=== PATIENT | male | born 1955 | race African-American/Black ===

== ENCOUNTER 2019-11-01 11:04 | Inpatient (IN) | payer MEDICARE, MEDICAID ==
[~2019-11-01] VITALS: Ht 180.3 cm; Wt 53.6 kg
[2019-11-01] VITALS (11 sets, daily range): BP systolic 102–120; BP diastolic 48–73
[2019-11-01 11:23] LABS: BASE EXCESS ABG 5 mmol/L (-3-3); HCO3 ABG 29 mmol/L (21-28); PCO2 ABG 40 mmHg (35-46); PO2 ABG 77 mmHg (65-108); SAT O2 ABG 95 % (92-99)
[2019-11-01 11:24] LABS: FIO2 ABG 100
[2019-11-01] MEDS ORDERED: IV NORMAL SALINE 1000ML BAG 1,000 ML IV ONE ×3 (11:30→14:45)
[2019-11-01 11:37] LABS: BASO # 0.1 x10^3/uL (0.0-0.2); BASO % 0 % (0-3); EOS % 0 % (0-3); HEMATOCRIT 40.3 % (39.0-53.0); HEMOGLOBIN 12.6 g/dL (13.0-17.5); LYMPH # 1.3 x10^3/uL (1.0-4.8); LYMPH % 6 % (24-48); MEAN CORPUSCULAR HEMOGLOBIN 29 pg (25-35); MEAN CORPUSCULAR HGB CONC 31 g/dL (31-37); MEAN CORPUSCULAR VOLUME 93 fL (79-100); MONO # 0.7 x10^3/uL (0.0-1.1); MONO % 3 % (0-9); NEUT # 19.3 x10^3/uL (1.8-7.7); NEUT % 91 % (31-73); PLATELET COUNT 377 x10^3/uL (140-400); RED BLOOD COUNT 4.35 x10^6/uL (4.30-5.70); RED CELL DISTRIBUTION WIDTH 17.9 % (11.5-14.5); WHITE BLOOD COUNT 21.3 x10^3/uL (4.0-11.0)
[2019-11-01 11:45] LABS: CALCIUM 9.4 mg/dL (8.5-10.1); CREATININE 1.2 mg/dL (0.7-1.3); GFR 73.3; POTASSIUM 3.5 mmol/L (3.5-5.1)
[2019-11-01 11:46] LABS: PROTHROMBIN TIME PATIENT 15.7 SEC (11.7-14.0)
[2019-11-01 11:51] LABS: ALBUMIN 2.2 g/dL (3.4-5.0); ALBUMIN/GLOBULIN RATIO 0.3 (1.0-1.7); TOTAL BILIRUBIN 0.4 mg/dL (0.2-1.0); TOTAL PROTEIN 10.7 g/dL (6.4-8.2)
[2019-11-01 11:52] LABS: D-DIMER 3.34 ug/mlFEU (0.00-0.50)
--- NOTE | 2019-11-01 12:22 | RAD ---
PORTABLE CHEST 1V Clinical indications: Shortness of air. COMPARISON: None available. Findings: Bilateral lung infiltrates are present much more consolidated and prominent within the lower lung zones bilaterally. No pleural effusion is seen on the left side. There is mild thickening of the right minor fissure consistent with a small amount of pleural effusion on this side. The apices are cut off. No pneumothorax is seen. The heart size and mediastinum and pulmonary vasculature and both maynor are unremarkable. IMPRESSION: Bilateral lung infiltrates or pulmonary edema more prominent within the lower lung zones. Minimal right-sided pleural effusion. Given normal heart size, the lung infiltrates may represent pneumonia or aspiration pneumonitis. Electronically signed by: West Mistry MD (11/01/2019 12:19 PM) [id number]
[2019-11-01 12:23] LABS: % BANDS 3 % (0-9); % LYMPHS 3 % (24-48); % MONOS 3 % (0-10); % SEGS 91 % (35-66); PLT ESTIMATE ADEQUATE (ADEQUATE)
[2019-11-01 12:24] LABS: POLYCHROMASIA SLIGHT
[2019-11-01 12:43] LABS: BILIRUBIN,URINE SMALL (NEG); CLARITY,URINE CLOUDY; COLOR,URINE YELLOW; NITRITE,URINE NEGATIVE (NEG); PH,URINE 5.5 (<5.0-8.0); PROTEIN,URINE 100 mg/dL (NEG-TRACE)
[2019-11-01 13:01] LABS: AMORPHOUS SEDIMENT,UR PRESENT /HPF; BACTERIA,URINE FEW /HPF (0-FEW)
--- NOTE | 2019-11-01 14:33 | PHYS DOC ---
Past Medical History Past Medical History: Unknown Additional Past Surgical Histo: UNK Smoking Status: Unknown if ever smoked Alcohol Use: None General Adult EDM: Chief Complaint: DYSPNEA/RESPIRATOY DISTRESS HPI: HPI: Patient is a 64 year old male, , with history of CVA, was brought here from [facility] with report of trouble breathing. Patient was recently treated for pneumonia. Patient has feeding tube in place, was in respiratory distress him arrival here, he was not able to provide any information. Patient has history of CVA, has hemiplegia and hemiparesis on right side. History of Parkinson disease, anxiety, Alzheimer's disease, rheumatoid arthritis, hypothyroidism. Review of Systems: Review of Systems: Not able to obtain due to patient condition Heart Score: Risk Factors: Risk Factors: DM, Current or recent (<one month) smoker, HTN, HLP, family history of CAD, obesity. Risk Scores: Score 0 - 3: 2.5% MACE over next 6 weeks - Discharge Home Score 4 - 6: 20.3% MACE over next 6 weeks - Admit for Clinical Observation Score 7 - 10: 72.7% MACE over next 6 weeks - Early Invasive Strategies Current Medications: Current Medications Medications (Trade) Dose Ordered Sig/Radha Start Time Stop Time Status Last Admin Dose Admin Levofloxacin/ Dextrose 150 ml @ 100 mls/hr 1X ONCE 11/01/19 13:00 11/01/19 14:29 DC 11/01/19 13:14 100 MLS/HR Sodium Chloride 1,000 ml @ 1,000 mls/hr 1X ONCE 11/01/19 12:00 11/01/19 12:59 DC 11/01/19 12:13 1,000 MLS/HR Allergies: Allergies: Allergies Coded Allergies Type Severity Reaction Last Updated Verified Penicillins Allergy Intermediate 11/01/19 Yes Physical Exam: PE: Constitutional: Well developed, cachectic, toxic appearance. [] HENT: Normocephalic, atraumatic, bilateral external ears normal, oropharynx is dried, no oral exudates, nose normal. [] Eyes: PERRLA, EOMI, conjunctiva normal, no discharge. [] Neck: Normal range of motion, no tenderness, supple, no stridor. [] Cardiovascular: SINUS TACHYCARDIA, regular rhythm, no murmur [] Lungs & Thorax: DIFFUSE CRACKLES AT LUNG BASES. Abdomen: Bowel sounds normal, soft, no tenderness, no masses, no pulsatile masses. [] Skin: DIAPHORESIS Back: ATRAUMATIC Extremities: RIGHT SIDE HEMIPARALYSIS (CHRONIC), PATIENT WAS ABLE TO MOVE LEFT TOE... Neurologic: ALERT, CONFUSED, RIGHT SIDE HEMIPARALYSIS. Psychologic: NOT ABLE TO EVALUATE DUE TO CONDITION. Current Patient Data: Labs: Laboratory Tests Test 11/01/19 11:15 11/01/19 12:35 White Blood Count 21.3 x10^3/uL (4.0-11.0) H Red Blood Count 4.35 x10^6/uL (4.30-5.70) Hemoglobin 12.6 g/dL (13.0-17.5) L Hematocrit 40.3 % (39.0-53.0) Mean Corpuscular Volume 93 fL (79-100) Mean Corpuscular Hemoglobin 29 pg (25-35) Mean Corpuscular Hemoglobin Concent 31 g/dL (31-37) Red Cell Distribution Width 17.9 % (11.5-14.5) H Platelet Count 377 x10^3/uL (140-400) Neutrophils (%) (Auto) 91 % (31-73) H Lymphocytes (%) (Auto) 6 % (24-48) L Monocytes (%) (Auto) 3 % (0-9) Eosinophils (%) (Auto) 0 % (0-3) Basophils (%) (Auto) 0 % (0-3) Neutrophils # (Auto) 19.3 x10^3/uL (1.8-7.7) H Lymphocytes # (Auto) 1.3 x10^3/uL (1.0-4.8) Monocytes # (Auto) 0.7 x10^3/uL (0.0-1.1) Eosinophils # (Auto) 0.0 x10^3/uL (0.0-0.7) Basophils # (Auto) 0.1 x10^3/uL (0.0-0.2) Segmented Neutrophils % 91 % (35-66) H Band Neutrophils % 3 % (0-9) Lymphocytes % 3 % (24-48) L Monocytes % 3 % (0-10) Platelet Estimate Adequate (ADEQUATE) Polychromasia Slight Prothrombin Time 15.7 SEC (11.7-14.0) H Prothrombin Time INR 1.3 (0.8-1.1) H Activated Partial Thromboplast Time 31 SEC (24-38) D-Dimer (Lolis) 3.34 ug/mlFEU (0.00-0.50) H O2 Saturation 95 % (92-99) Arterial Blood pH 7.48 (7.35-7.45) H Arterial Blood pCO2 at Patient Temp 40 mmHg (35-46) Arterial Blood pO2 at Patient Temp 77 mmHg (65-108) Arterial Blood HCO3 29 mmol/L (21-28) H Arterial Blood Base Excess 5 mmol/L (-3-3) H FiO2 100 Sodium Level 158 mmol/L (136-145) H Potassium Level 3.5 mmol/L (3.5-5.1) Chloride Level 116 mmol/L (98-107) H Carbon Dioxide Level 33 mmol/L (21-32) H Anion Gap 9 (6-14) Blood Urea Nitrogen 62 mg/dL (8-26) H Creatinine 1.2 mg/dL (0.7-1.3) Estimated GFR (Cockcroft-Gault) 73.3 BUN/Creatinine Ratio 52 (6-20) H Glucose Level 247 mg/dL (70-99) H Lactic Acid Level 2.9 mmol/L (0.4-2.0) H Calcium Level 9.4 mg/dL (8.5-10.1) Total Bilirubin 0.4 mg/dL (0.2-1.0) Aspartate Amino Transferase (AST) 83 U/L (15-37) H Alanine Aminotransferase (ALT) 123 U/L (16-63) H Alkaline Phosphatase 199 U/L (46-116) H Troponin I Quantitative 0.108 ng/mL (0.000-0.055) Total Protein 10.7 g/dL (6.4-8.2) H Albumin 2.2 g/dL (3.4-5.0) L Albumin/Globulin Ratio 0.3 (1.0-1.7) L Urine Collection Type U cath Urine Color Yellow Urine Clarity Cloudy Urine pH 5.5 (<5.0-8.0) Urine Specific [place] 1.020 (1.000-1.030) Urine Protein 100 mg/dL (NEG-TRACE) Urine Glucose (UA) 100 mg/dL (NEG) Urine Ketones (Stick) Negative mg/dL (NEG) Urine Blood Moderate (NEG) Urine Nitrite Negative (NEG) Urine Bilirubin Small (NEG) Urine Urobilinogen Dipstick 1.0 mg/dL (0.2 mg/dL) Urine Leukocyte Esterase Negative (NEG) Urine RBC 6-10 /HPF (0-2) Urine WBC 1-4 /HPF (0-4) Urine Amorphous Sediment Present /HPF Urine Bacteria Few /HPF (0-FEW) Laboratory Tests 11/01/19 11:15 Laboratory Tests 11/01/19 11:15 Vital Signs: Vital Signs Date Time Temp Pulse Resp B/P (MAP) Pulse Ox O2 Delivery O2 Flow Rate FiO2 11/01/19 11:25 NonRebreather Mask 15.0 11/01/19 11:10 99.3 159 43 80/62 (68 85 99.3 EKG: EKG: EKG was done at 1111, heart rate of 158 bpm, sinus tachycardia, no ST segment elevation. Radiology/Procedures: Radiology/Procedures: [][facility] [address] [place] [address] IMAGING REPORT Signed PATIENT: JACQUELYN WARE ACCOUNT: [id number] : 1955 LOCATION: ER AGE: 64 SEX: M EXAM STATUS: REG ER ORD. PHYSICIAN: THALIA GRACIA DO REASON: SOA PROCEDURE: PORTABLE CHEST 1V PORTABLE CHEST 1V Clinical indications: Shortness of air. COMPARISON: None available. Findings: Bilateral lung infiltrates are present much more consolidated and prominent within the lower lung zones bilaterally. No pleural effusion is seen on the left side. There is mild thickening of the right minor fissure consistent with a small amount of pleural effusion on this side. The apices are cut off. No pneumothorax is seen. The heart size and mediastinum and pulmonary vasculature and both maynor are unremarkable. IMPRESSION: Bilateral lung infiltrates or pulmonary edema more prominent within the lower lung zones. Minimal right-sided pleural effusion. Given normal heart size, the lung infiltrates may represent pneumonia or aspiration pneumonitis. Electronically signed by: Rafael Mistry MD (11/01/2019 12:19 PM) [id number] DICTATED and SIGNED BY: RAFAEL MISTRY MD DATE: 11/01/19 1219 Course & Med Decision Making: Course & Med Decision Making Pertinent Labs and Imaging studies reviewed. (See chart for details) Patient is a 64-year-old male who was severely dehydrated emaciated with history of CVA affecting right side of his body, nonverbal, was brought here by EMS fr [facility] due to trouble breathing. Chest x-ray showed bilateral infiltration consistent with pneumonia. Patient is suspected to have COVID19 infection as well. He is severely dehydrated, severe sepsis. Patient was given 3 L normal saline in the ER, his blood pressure and heart rate improved. Patient became more awake alert after IV fluids given. Patient is allergic to penicillin so he was given 750 mg of Levaquin IV. Patient will be admitted to ICU for further evaluation and treatment. Discussed with Dr. Ron, hospitalist on-call, who agreed to admit the patient to ICU. COVID-19 CRITERIA: The patient was evaluated during the global COVID-19 pandemic, and that diagnosis was suspected/considered upon their initial presentation. Their evaluation, treatment and testing was consistent with current guidelines for patients who present with complaints or symptoms that may be related to COVID-19. Critical care time was [60] minutes which includes time at bedside, spent in discussion of patient's care with specialist and/or family members, with interpretation of laboratory and/or radiological studies and is exclusive of procedures. Dragon Disclaimer: Dragon Disclaimer: This electronic medical record was generated, in whole or in part, using a voice recognition dictation system. Departure Departure Impression: Primary Impression: Severe sepsis Additional Impressions: Pneumonia Suspected COVID-19 virus infection Dehydration Disposition: ADMITTED INPATIENT Admitting Physician: NORMAN (Dr. Ron) Condition: IMPROVED Referrals: UNKNOWN PCP NAME (PCP) Justicifation of Admission Dx: Justifications for Admission: Justification of Admission Dx: Yes Sepsis: Hemodynamic Instability Date and Time of Reassessment Date: Nov 01, 2019 Time: 15:18 Fluid Challenge Is the fluid challenge complet: Yes IBW Target Volume Used: Yes BMI > 30: No Vital Signs Vital Signs: Vital Signs Date Time Temp Pulse Resp B/P (MAP) Pulse Ox O2 Delivery O2 Flow Rate FiO2 11/01/19 11:25 NonRebreather Mask 15.0 11/01/19 11:10 99.3 159 43 80/62 (68) 85 99.3 Temperature Source: Axillary Respirations Respiratory Effort: Non-Labored Respiratory Pattern: Tachypnea Cardiovascular Pulse Rhythm: Regular (tachycardia) Heart: No JVD Capillary Refil Capillary Refill: Lt Hand > 3 seconds Peripheral Pulse Pulse Location: Monitor Pulse Strength: Normal (2+) Pulse Assessment Method: Monitor Integumentary Skin: Warm Skin Moisture: Diaphoretic Skin Color: warm THALIA GRACIA DO Nov 01, 2019 14:33
[2019-11-01] MEDS ORDERED: ONDANSETRON PF 4 MG/2 ML VIAL. IV PRN (14:45)
--- NOTE | 2019-11-01 16:15 | PDOC ---
Infectious Disease Note Vital Sign Vital Signs Vital Signs Date Time Temp Pulse Resp B/P (MAP) Pulse Ox O2 Delivery O2 Flow Rate FiO2 11/01/19 11:25 NonRebreather Mask 15.0 11/01/19 11:10 99.3 159 43 80/62 (68) 85 99.3 Labs Lab Laboratory Tests Test 11/01/19 11:15 11/01/19 12:35 11/01/19 14:45 White Blood Count 21.3 x10^3/uL (4.0-11.0) Red Blood Count 4.35 x10^6/uL (4.30-5.70) Hemoglobin 12.6 g/dL (13.0-17.5) Hematocrit 40.3 % (39.0-53.0) Mean Corpuscular Volume 93 fL (79-100) Mean Corpuscular Hemoglobin 29 pg (25-35) Mean Corpuscular Hemoglobin Concent 31 g/dL (31-37) Red Cell Distribution Width 17.9 % (11.5-14.5) Platelet Count 377 x10^3/uL (140-400) Neutrophils (%) (Auto) 91 % (31-73) Lymphocytes (%) (Auto) 6 % (24-48) Monocytes (%) (Auto) 3 % (0-9) Eosinophils (%) (Auto) 0 % (0-3) Basophils (%) (Auto) 0 % (0-3) Neutrophils # (Auto) 19.3 x10^3/uL (1.8-7.7) Lymphocytes # (Auto) 1.3 x10^3/uL (1.0-4.8) Monocytes # (Auto) 0.7 x10^3/uL (0.0-1.1) Eosinophils # (Auto) 0.0 x10^3/uL (0.0-0.7) Basophils # (Auto) 0.1 x10^3/uL (0.0-0.2) Segmented Neutrophils % 91 % (35-66) Band Neutrophils % 3 % (0-9) Lymphocytes % 3 % (24-48) Monocytes % 3 % (0-10) Platelet Estimate Adequate (ADEQUATE) Polychromasia Slight Prothrombin Time 15.7 SEC (11.7-14.0) Prothromb Time International Ratio 1.3 (0.8-1.1) Activated Partial Thromboplast Time 31 SEC (24-38) D-Dimer (Lolis) 3.34 ug/mlFEU (0.00-0.50) O2 Saturation 95 % (92-99) Arterial Blood pH 7.48 (7.35-7.45) Arterial Blood pCO2 at Patient Temp 40 mmHg (35-46) Arterial Blood pO2 at Patient Temp 77 mmHg (65-108) Arterial Blood HCO3 29 mmol/L (21-28) Arterial Blood Base Excess 5 mmol/L (-3-3) FiO2 100 Sodium Level 158 mmol/L (136-145) Potassium Level 3.5 mmol/L (3.5-5.1) Chloride Level 116 mmol/L (98-107) Carbon Dioxide Level 33 mmol/L (21-32) Anion Gap 9 (6-14) Blood Urea Nitrogen 62 mg/dL (8-26) Creatinine 1.2 mg/dL (0.7-1.3) Estimated GFR (Cockcroft-Gault) 73.3 BUN/Creatinine Ratio 52 (6-20) Glucose Level 247 mg/dL (70-99) Lactic Acid Level 2.9 mmol/L (0.4-2.0) 1.9 mmol/L (0.4-2.0) Calcium Level 9.4 mg/dL (8.5-10.1) Total Bilirubin 0.4 mg/dL (0.2-1.0) Aspartate Amino Transf (AST/SGOT) 83 U/L (15-37) Alanine Aminotransferase (ALT/SGPT) 123 U/L (16-63) Alkaline Phosphatase 199 U/L (46-116) Troponin I Quantitative 0.108 ng/mL (0.000-0.055) Total Protein 10.7 g/dL (6.4-8.2) Albumin 2.2 g/dL (3.4-5.0) Albumin/Globulin Ratio 0.3 (1.0-1.7) Urine Collection Type U cath Urine Color Yellow Urine Clarity Cloudy Urine pH 5.5 (<5.0-8.0) Urine Specific [place] 1.020 (1.000-1.030) Urine Protein 100 mg/dL (NEG-TRACE) Urine Glucose (UA) 100 mg/dL (NEG) Urine Ketones (Stick) Negative mg/dL (NEG) Urine Blood Moderate (NEG) Urine Nitrite Negative (NEG) Urine Bilirubin Small (NEG) Urine Urobilinogen Dipstick 1.0 mg/dL (0.2 mg/dL) Urine Leukocyte Esterase Negative (NEG) Urine RBC 6-10 /HPF (0-2) Urine WBC 1-4 /HPF (0-4) Urine Amorphous Sediment Present /HPF Urine Bacteria Few /HPF (0-FEW) Objective Assessment Sepsis with hypotension, POA Suspected COVID-19 infection vs aspiration Acute respiratory failure, on 6L O2 Leukocytosis Penicillin allergy Coccyx pressure wound, stage II, POA Transaminitis Elevated troponin Hypernatremia Oropharygeal dysphagia maintained on tube feedings h/o CVA with hemiplegia Parkinson's disease Alzheimer's disease care home resident Plan Plan of Care One time dose of Levaquin in ER, 10/31 Start Dapto, Zyvox and meropenem Monitor for abx toxicities Add lipase, CRP and LDH today's labs am labs f/u cultures Maintain aspiration precautions Local wound care and offloading as directed Airborne isolation for possible COVID-19 - awaiting results Critically ill D/w nursing Thank you [id number] Seen and examined and d/w nursing Critically ill. Monitor LFTs - may need imaging but exam benign 35 min and reviewed [facility] Attending Co-Sign Attending Co-Sign The patient was seen and interviewed as well as examined at the bedside. The chart was reviewed. The case was discussed. Agree with the plan of care. ARON HAY APRN Nov 01, 2019 16:15 ROCIO LOMBARDI MD Nov 01, 2019 16:36
[2019-11-01] MEDS: IV NORMAL SALINE 1000ML BAG 1,000 ML IV SCH (16:29)
[2019-11-01] MEDS ORDERED: ESOM40CA PO (16:47)
[2019-11-01] MEDS ORDERED: CALC-157 PEG (16:47)
[2019-11-01] MEDS ORDERED: TRAZ-118 PEG (16:47)
[2019-11-01] MEDS ORDERED: SERT50TA PEG (16:47)
[2019-11-01] MEDS ORDERED: METF500T16 PEG (16:47)
[2019-11-01] MEDS ORDERED: ASPI81TA59 PEG (16:47)
[2019-11-01] MEDS ORDERED: ACET325T9 PEG (16:47)
[2019-11-01] MEDS ORDERED: ATOR40TA59 PEG (16:47)
[2019-11-01] MEDS ORDERED: GABA600T7 PEG (16:47)
[2019-11-01] MEDS ORDERED: DAPTOmycin (GENERIC) IVPB 350 MG in IV NORMAL SALINE 50ML 50 ML IV ONE (17:00)
[2019-11-01 17:13] LABS: C-REACTIVE PROTEIN 214.5 mg/L (0-3.3)
[2019-11-01] MEDS: MEROPENEM 500 MG in IV NORMAL SALINE 50ML 50 ML IV SCH (17:42)
--- NOTE | 2019-11-01 17:56 | HP ---
ADMIT DATE: 11/01/2019 CHIEF COMPLAINT: Shortness of breath. HISTORY OF PRESENT ILLNESS: The patient is a pleasant 64-year-old male who had a stroke. He has got aphasia and a dense right hemiparesis. I think he lives at a facility at [facility]. He now presents with shortness of breath. We were concerned he could have COVID-19. We are going to admit the patient to rule out COVID-19. PAST MEDICAL HISTORY: Stroke, expressive aphasia, right dense hemiparesis. ALLERGIES: PENICILLIN. FAMILY HISTORY: Diabetes. SOCIAL HISTORY: Does not drink, smoke or take drugs. He lives at a group home. MEDICATIONS: Reviewed, please refer to the MRAD. REVIEW OF SYSTEMS: Unable to obtain. PHYSICAL EXAMINATION: VITALS: Within normal limits and are stable. GENERAL: No apparent distress. Alert and oriented. HEENT: Normal cephalic atraumatic, external auditory canals are patent EYES: Extraocular muscles are intact, pupils are equally round and reactive to light and accommodation MUSCULOSKELETAL: Well developed, well nourished, good range of motion ENDOCRINE: No thyromegaly was palpated LYMPHATICS: No cervical chain or axillary nodes were noted HEMATOPOIETIC: No bruising NECK: Supple, no JVD, no thyromegaly was noted. LUNGS: He has crackles. HEART: RRR, S1, S2 present. Peripheral pulses intact, no obvious murmurs were noted. ABDOMEN: Soft, nontender. Positive bowel sounds no organomegaly, normal bowel sounds. EXTREMITIES: Without any cyanosis, clubbing, or edema. Pedal pulses intact, Homans sign is negative. NEUROLOGIC: He cannot talk. PSYCHIATRIC: Normal affect, normal mood. Stable. SKIN: No ulcerations or rashes, good skin turgor, no jaundice. VASCULAR: Good capillary refill, neurovascular bundle appears to be intact. RADIOLOGICAL DATA: Chest x-ray shows bilateral lung infiltrates. ASSESSMENT AND PLAN: Respiratory failure, rule out COVID-19. The patient will be admitted. We will start IV antibiotics, breathing treatments, oxygen. Consult Pulmonary, consult Infectious Disease. Home meds, DVT prophylaxis. Full code. ICU monitoring. KONSTANTIN MOSS DO DR: MIRIAN/maribell JOB#: [id number] / [id number]
--- NOTE | 2019-11-01 18:12 | CONS ---
DATE OF CONSULTATION: 11/01/2019 REQUESTING PHYSICIAN: Dr. Ron. REASON FOR CONSULT: Suspected COVID-19 infection. HISTORY OF PRESENT ILLNESS: The patient is a 64-year-old -[place] gentleman with a past medical history of Alzheimer's disease, Parkinson's disease, history of cerebrovascular accident with hemiplegia and oropharyngeal dysphagia, maintained on tube feedings. [facility] with acute respiratory failure requiring some supplemental oxygen. He was hypotensive on arrival and was given 3 liters of IV fluids. He had a WBC count of 21,000 and lactic acid 2.9. A chest x-ray showed bilateral lung infiltrates or pulmonary edema, more prominent within the lower lung zones and minimal right-sided pleural effusion. He was given a one-time dose of levofloxacin for pneumonia in the ER. He was tested for COVID-19. Results are still pending. He was admitted to the Intensive Care Unit. PAST MEDICAL HISTORY: CVA with hemiplegia, Parkinson's disease, Alzheimer's disease, rheumatoid arthritis, hypothyroidism, oropharyngeal dysphagia, type 2 diabetes mellitus, bipolar disorder, anxiety disorder, and spinal stenosis in cervical region PAST SURGICAL HISTORY: PEG tube placement. Other surgical history unobtainable. FAMILY HISTORY: Unable to obtain due to the patient's condition and lack of medical records from the [facility]. SOCIAL HISTORY: half-way resident. He is a . ALLERGIES: LISTED PENICILLIN, reaction unknown. MEDICATIONS: Reviewed on the JUN and includes one-time dose of levofloxacin in ER. REVIEW OF SYSTEMS: Unobtainable due to the patient's condition. PHYSICAL EXAMINATION: VITAL SIGNS: Temperature 99.3, blood pressure 80/62, heart rate 159, respiratory rate 43, pulse oximetry 85% on 15 liters nonrebreather, now improved on 6 liters. GENERAL: The patient is lying down, alert, nonverbal, in no apparent distress. Cachexic. HEENT: Pupils equally round, normal conjunctivae. He refuses to open his mouth for exam. NECK: Supple. LUNGS: Clear to auscultation. No accessory muscle use. HEART: S1 and S2. ABDOMEN: Nondistended, soft, nontender with bowel sounds present. PEG tube in place. EXTREMITIES: No gross edema or cyanosis. Muscle atrophy. SKIN: Warm to touch. No signs of rash. He has a small sacrococcygeal pressure wound, stage 2 without signs of infection. NEUROLOGIC: Alert. He does not respond to questions or follow commands. LABORATORY DATA: Today's WBC 21.3, hemoglobin 12.6, platelets 377,000 segs 91%, bands 3%. Sodium 158, potassium 3.5, creatinine 1.2, BUN 62, glucose 247. Lactic acid 1.9 from 2.9 on admission. Total bilirubin 0.4, AST 83, ALT 123. Troponin 0.108, albumin 2.2. Urinalysis unremarkable for infection. Blood cultures are pending. Chest x-ray per HPI. COVID-19 pending. IMPRESSION: 1. Sepsis with hypotension, present on admission. 2. Suspected COVID-19 infection versus aspiration. 3. Acute respiratory failure requiring supplemental oxygen. 4. Leukocytosis. 5. PENICILLIN ALLERGY, reaction unknown. 6. Coccyx pressure wound, stage 2, present on admission. 7. Transaminitis. 8. Elevated troponin. 9. Hypernatremia 10. Oropharyngeal dysphagia, maintained on tube feedings. 11. History of cerebrovascular accident with hemiplegia. 12. Parkinson's disease. 13. Alzheimer's disease. 14. half-way resident. PLAN: 1. Records from a [facility] were reviewed though scant. We will add a lipase, CRP and LDH to today's labs. Initiate daptomycin, Zyvox and meropenem. Maintain aspiration precautions. Local wound care and offloading as directed. Repeat labs in the morning. Airborne isolation for possible COVID-19, pending results. 2. The patient is critically ill. Thank you, Dr. Ron, for asking us to participate in this patient's care. Should you have further questions or concerns, please call. The patient is seen and examined and plan of care implemented by Dr. Rocio Michaud. ROCIO MICHAUD MD DR: ELVIS/maribell JOB#: [id number] / [id number]
[2019-11-02] VITALS (19 sets, daily range): BP systolic 99–116; BP diastolic 54–70
[2019-11-02] MEDS: MEROPENEM 500 MG in IV NORMAL SALINE 50ML 50 ML IV SCH ×4 (00:11→21:09)
[2019-11-02] MEDS: IV NORMAL SALINE 1000ML BAG 1,000 ML IV SCH (03:48)
[2019-11-02 04:08] LABS: BASO % 0 % (0-3); EOS % 0 % (0-3); HEMATOCRIT 30.4 % (39.0-53.0); HEMOGLOBIN 9.3 g/dL (13.0-17.5); LYMPH # 1.4 x10^3/uL (1.0-4.8); LYMPH % 11 % (24-48); MEAN CORPUSCULAR HEMOGLOBIN 29 pg (25-35); MEAN CORPUSCULAR HGB CONC 31 g/dL (31-37); MEAN CORPUSCULAR VOLUME 93 fL (79-100); MONO # 0.5 x10^3/uL (0.0-1.1); MONO % 4 % (0-9); NEUT # 11.4 x10^3/uL (1.8-7.7); NEUT % 86 % (31-73); PLATELET COUNT 236 x10^3/uL (140-400); RED BLOOD COUNT 3.27 x10^6/uL (4.30-5.70); RED CELL DISTRIBUTION WIDTH 17.1 % (11.5-14.5); WHITE BLOOD COUNT 13.3 x10^3/uL (4.0-11.0)
[2019-11-02 04:29] LABS: ALBUMIN 1.5 g/dL (3.4-5.0); ALBUMIN/GLOBULIN RATIO 0.3 (1.0-1.7); CALCIUM 7.7 mg/dL (8.5-10.1); CREATININE 0.9 mg/dL (0.7-1.3); GFR 102.2; POTASSIUM 3.2 mmol/L (3.5-5.1); TOTAL BILIRUBIN 0.4 mg/dL (0.2-1.0); TOTAL PROTEIN 7.5 g/dL (6.4-8.2)
[2019-11-02] MEDS: IV 1/2 NORMAL SALINE 1,000 ML IV SCH ×2 (05:56→21:11)
--- NOTE | 2019-11-02 08:50 | PDOC ---
Infectious Disease Note Subjective Subjective Nonverbal No fevers last 24 hours Now on room air, satting 93% ROS ROS unobtainable due to patient's condition Vital Sign Vital Signs Vital Signs Date Time Temp Pulse Resp B/P (MAP) Pulse Ox O2 Delivery O2 Flow Rate FiO2 11/02/19 06:00 98 28 104/66 (79) 94 Room Air 11/02/19 05:00 1.0 11/02/19 04:00 96.7 96.7 Physical Exam PHYSICAL EXAM GENERAL: Propped up in bed, alert, nonverbal, cachexic, in NAD HEENT: Pupils equally round, normal conjunctivae. He refuses to open his mouth for exam. NECK: Supple. LUNGS: Clear to auscultation. No accessory muscle use. HEART: S1 and S2. ABDOMEN: Nondistended, soft, with bowel sounds present. + PEG tube. No grimace or guarding to palpation : Clark in place (10/31) EXTREMITIES: No gross edema or cyanosis. Muscle atrophy. Heel protector on the right. SKIN: Warm to touch. No signs of rash. A small sacrococcygeal pressure wound, stage 2 without signs of infection, as of 10/31. NEUROLOGIC: Alert. He does not respond to questions or follow commands. PIV looks ok Labs Lab Laboratory Tests Test 11/01/19 11:15 11/01/19 12:35 11/01/19 14:45 11/02/19 03:40 White Blood Count 21.3 x10^3/uL (4.0-11.0) 13.3 x10^3/uL (4.0-11.0) Red Blood Count 4.35 x10^6/uL (4.30-5.70) 3.27 x10^6/uL (4.30-5.70) Hemoglobin 12.6 g/dL (13.0-17.5) 9.3 g/dL (13.0-17.5) Hematocrit 40.3 % (39.0-53.0) 30.4 % (39.0-53.0) Mean Corpuscular Volume 93 fL (79-100) 93 fL (79-100) Mean Corpuscular Hemoglobin 29 pg (25-35) 29 pg (25-35) Mean Corpuscular Hemoglobin Concent 31 g/dL (31-37) 31 g/dL (31-37) Red Cell Distribution Width 17.9 % (11.5-14.5) 17.1 % (11.5-14.5) Platelet Count 377 x10^3/uL (140-400) 236 x10^3/uL (140-400) Neutrophils (%) (Auto) 91 % (31-73) 86 % (31-73) Lymphocytes (%) (Auto) 6 % (24-48) 11 % (24-48) Monocytes (%) (Auto) 3 % (0-9) 4 % (0-9) Eosinophils (%) (Auto) 0 % (0-3) 0 % (0-3) Basophils (%) (Auto) 0 % (0-3) 0 % (0-3) Neutrophils # (Auto) 19.3 x10^3/uL (1.8-7.7) 11.4 x10^3/uL (1.8-7.7) Lymphocytes # (Auto) 1.3 x10^3/uL (1.0-4.8) 1.4 x10^3/uL (1.0-4.8) Monocytes # (Auto) 0.7 x10^3/uL (0.0-1.1) 0.5 x10^3/uL (0.0-1.1) Eosinophils # (Auto) 0.0 x10^3/uL (0.0-0.7) 0.0 x10^3/uL (0.0-0.7) Basophils # (Auto) 0.1 x10^3/uL (0.0-0.2) 0.0 x10^3/uL (0.0-0.2) Segmented Neutrophils % 91 % (35-66) Band Neutrophils % 3 % (0-9) Lymphocytes % 3 % (24-48) Monocytes % 3 % (0-10) Platelet Estimate Adequate (ADEQUATE) Polychromasia Slight Prothrombin Time 15.7 SEC (11.7-14.0) Prothromb Time International Ratio 1.3 (0.8-1.1) Activated Partial Thromboplast Time 31 SEC (24-38) D-Dimer (Lolis) 3.34 ug/mlFEU (0.00-0.50) O2 Saturation 95 % (92-99) Arterial Blood pH 7.48 (7.35-7.45) Arterial Blood pCO2 at Patient Temp 40 mmHg (35-46) Arterial Blood pO2 at Patient Temp 77 mmHg (65-108) Arterial Blood HCO3 29 mmol/L (21-28) Arterial Blood Base Excess 5 mmol/L (-3-3) FiO2 100 Sodium Level 158 mmol/L (136-145) 161 mmol/L (136-145) Potassium Level 3.5 mmol/L (3.5-5.1) 3.2 mmol/L (3.5-5.1) Chloride Level 116 mmol/L (98-107) 125 mmol/L (98-107) Carbon Dioxide Level 33 mmol/L (21-32) 27 mmol/L (21-32) Anion Gap 9 (6-14) 9 (6-14) Blood Urea Nitrogen 62 mg/dL (8-26) 47 mg/dL (8-26) Creatinine 1.2 mg/dL (0.7-1.3) 0.9 mg/dL (0.7-1.3) Estimated GFR (Cockcroft-Gault) 73.3 102.2 BUN/Creatinine Ratio 52 (6-20) 52 (6-20) Glucose Level 247 mg/dL (70-99) 107 mg/dL (70-99) Lactic Acid Level 2.9 mmol/L (0.4-2.0) 1.9 mmol/L (0.4-2.0) Calcium Level 9.4 mg/dL (8.5-10.1) 7.7 mg/dL (8.5-10.1) Total Bilirubin 0.4 mg/dL (0.2-1.0) 0.4 mg/dL (0.2-1.0) Aspartate Amino Transf (AST/SGOT) 83 U/L (15-37) 60 U/L (15-37) Alanine Aminotransferase (ALT/SGPT) 123 U/L (16-63) 80 U/L (16-63) Alkaline Phosphatase 199 U/L (46-116) 109 U/L (46-116) Lactate Dehydrogenase 251 U/L (85-227) Troponin I Quantitative 0.108 ng/mL (0.000-0.055) C-Reactive Protein, Quantitative 214.5 mg/L (0-3.3) Total Protein 10.7 g/dL (6.4-8.2) 7.5 g/dL (6.4-8.2) Albumin 2.2 g/dL (3.4-5.0) 1.5 g/dL (3.4-5.0) Albumin/Globulin Ratio 0.3 (1.0-1.7) 0.3 (1.0-1.7) Lipase 172 U/L (73-393) Urine Collection Type U cath Urine Color Yellow Urine Clarity Cloudy Urine pH 5.5 (<5.0-8.0) Urine Specific [place] 1.020 (1.000-1.030) Urine Protein 100 mg/dL (NEG-TRACE) Urine Glucose (UA) 100 mg/dL (NEG) Urine Ketones (Stick) Negative mg/dL (NEG) Urine Blood Moderate (NEG) Urine Nitrite Negative (NEG) Urine Bilirubin Small (NEG) Urine Urobilinogen Dipstick 1.0 mg/dL (0.2 mg/dL) Urine Leukocyte Esterase Negative (NEG) Urine RBC 6-10 /HPF (0-2) Urine WBC 1-4 /HPF (0-4) Urine Amorphous Sediment Present /HPF Urine Bacteria Few /HPF (0-FEW) Objective Assessment Sepsis with hypotension, POA. improving Suspected COVID-19 infection vs aspiration Acute respiratory failure, improving, now on room air. Leukocytosis - better Penicillin allergy, reaction unknown Coccyx pressure wound, stage II, POA Transaminitis. LDH 215, lipase 172 Elevated troponin Hypernatremia Oropharygeal dysphagia maintained on tube feedings h/o CVA with hemiplegia Parkinson's disease Alzheimer's disease correction resident Plan Plan of Care One time dose of Levaquin in ER, 7 One time dose dapto, 72 Continue Zyvox/meropenem, 7/2 Monitor for abx toxicities CRP 214.5 f/u cultures Maintain aspiration precautions Local wound care and offloading as directed Airborne isolation for possible COVID-19 - awaiting results Critically ill D/w nursing COVID - neg - Clinically much better. alot of sputum per nursing - D/w nursing Attending Co-Sign Attending Co-Sign The patient was seen and interviewed as well as examined at the bedside. The chart was reviewed. The case was discussed. Agree with the plan of care. ARON HAY APRN Nov 02, 2019 08:50 ROCIO LOMBARDI MD Nov 02, 2019 14:40
--- NOTE | 2019-11-02 11:43 | PDOC ---
PULMONARY PROGRESS NOTES Vitals Vital Signs Date Time Temp Pulse Resp B/P (MAP) Pulse Ox O2 Delivery O2 Flow Rate FiO2 11/02/19 08:00 Room Air 11/02/19 08:00 97.5 89 26 116/70 (85) 94 97.5 11/02/19 05:00 1.0 Skin: Warm Labs Laboratory Tests Test 11/01/19 11:15 11/01/19 12:35 11/01/19 14:45 11/01/19 23:00 White Blood Count 21.3 x10^3/uL (4.0-11.0) Red Blood Count 4.35 x10^6/uL (4.30-5.70) Hemoglobin 12.6 g/dL (13.0-17.5) Hematocrit 40.3 % (39.0-53.0) Mean Corpuscular Volume 93 fL (79-100) Mean Corpuscular Hemoglobin 29 pg (25-35) Mean Corpuscular Hemoglobin Concent 31 g/dL (31-37) Red Cell Distribution Width 17.9 % (11.5-14.5) Platelet Count 377 x10^3/uL (140-400) Neutrophils (%) (Auto) 91 % (31-73) Lymphocytes (%) (Auto) 6 % (24-48) Monocytes (%) (Auto) 3 % (0-9) Eosinophils (%) (Auto) 0 % (0-3) Basophils (%) (Auto) 0 % (0-3) Neutrophils # (Auto) 19.3 x10^3/uL (1.8-7.7) Lymphocytes # (Auto) 1.3 x10^3/uL (1.0-4.8) Monocytes # (Auto) 0.7 x10^3/uL (0.0-1.1) Eosinophils # (Auto) 0.0 x10^3/uL (0.0-0.7) Basophils # (Auto) 0.1 x10^3/uL (0.0-0.2) Segmented Neutrophils % 91 % (35-66) Band Neutrophils % 3 % (0-9) Lymphocytes % 3 % (24-48) Monocytes % 3 % (0-10) Platelet Estimate Adequate (ADEQUATE) Polychromasia Slight Prothrombin Time 15.7 SEC (11.7-14.0) Prothromb Time International Ratio 1.3 (0.8-1.1) Activated Partial Thromboplast Time 31 SEC (24-38) D-Dimer (Lolis) 3.34 ug/mlFEU (0.00-0.50) O2 Saturation 95 % (92-99) Arterial Blood pH 7.48 (7.35-7.45) Arterial Blood pCO2 at Patient Temp 40 mmHg (35-46) Arterial Blood pO2 at Patient Temp 77 mmHg (65-108) Arterial Blood HCO3 29 mmol/L (21-28) Arterial Blood Base Excess 5 mmol/L (-3-3) FiO2 100 Sodium Level 158 mmol/L (136-145) Potassium Level 3.5 mmol/L (3.5-5.1) Chloride Level 116 mmol/L (98-107) Carbon Dioxide Level 33 mmol/L (21-32) Anion Gap 9 (6-14) Blood Urea Nitrogen 62 mg/dL (8-26) Creatinine 1.2 mg/dL (0.7-1.3) Estimated GFR (Cockcroft-Gault) 73.3 BUN/Creatinine Ratio 52 (6-20) Glucose Level 247 mg/dL (70-99) Lactic Acid Level 2.9 mmol/L (0.4-2.0) 1.9 mmol/L (0.4-2.0) Calcium Level 9.4 mg/dL (8.5-10.1) Total Bilirubin 0.4 mg/dL (0.2-1.0) Aspartate Amino Transf (AST/SGOT) 83 U/L (15-37) Alanine Aminotransferase (ALT/SGPT) 123 U/L (16-63) Alkaline Phosphatase 199 U/L (46-116) Lactate Dehydrogenase 251 U/L (85-227) Troponin I Quantitative 0.108 ng/mL (0.000-0.055) C-Reactive Protein, Quantitative 214.5 mg/L (0-3.3) Total Protein 10.7 g/dL (6.4-8.2) Albumin 2.2 g/dL (3.4-5.0) Albumin/Globulin Ratio 0.3 (1.0-1.7) Lipase 172 U/L (73-393) Urine Collection Type U cath Urine Color Yellow Urine Clarity Cloudy Urine pH 5.5 (<5.0-8.0) Urine Specific [place] 1.020 (1.000-1.030) Urine Protein 100 mg/dL (NEG-TRACE) Urine Glucose (UA) 100 mg/dL (NEG) Urine Ketones (Stick) Negative mg/dL (NEG) Urine Blood Moderate (NEG) Urine Nitrite Negative (NEG) Urine Bilirubin Small (NEG) Urine Urobilinogen Dipstick 1.0 mg/dL (0.2 mg/dL) Urine Leukocyte Esterase Negative (NEG) Urine RBC 6-10 /HPF (0-2) Urine WBC 1-4 /HPF (0-4) Urine Amorphous Sediment Present /HPF Urine Bacteria Few /HPF (0-FEW) Coronavirus (COVID-19)(PCR) Not detected (NOT DETECT.) Test 11/02/19 03:40 White Blood Count 13.3 x10^3/uL (4.0-11.0) Red Blood Count 3.27 x10^6/uL (4.30-5.70) Hemoglobin 9.3 g/dL (13.0-17.5) Hematocrit 30.4 % (39.0-53.0) Mean Corpuscular Volume 93 fL (79-100) Mean Corpuscular Hemoglobin 29 pg (25-35) Mean Corpuscular Hemoglobin Concent 31 g/dL (31-37) Red Cell Distribution Width 17.1 % (11.5-14.5) Platelet Count 236 x10^3/uL (140-400) Neutrophils (%) (Auto) 86 % (31-73) Lymphocytes (%) (Auto) 11 % (24-48) Monocytes (%) (Auto) 4 % (0-9) Eosinophils (%) (Auto) 0 % (0-3) Basophils (%) (Auto) 0 % (0-3) Neutrophils # (Auto) 11.4 x10^3/uL (1.8-7.7) Lymphocytes # (Auto) 1.4 x10^3/uL (1.0-4.8) Monocytes # (Auto) 0.5 x10^3/uL (0.0-1.1) Eosinophils # (Auto) 0.0 x10^3/uL (0.0-0.7) Basophils # (Auto) 0.0 x10^3/uL (0.0-0.2) Sodium Level 161 mmol/L (136-145) Potassium Level 3.2 mmol/L (3.5-5.1) Chloride Level 125 mmol/L (98-107) Carbon Dioxide Level 27 mmol/L (21-32) Anion Gap 9 (6-14) Blood Urea Nitrogen 47 mg/dL (8-26) Creatinine 0.9 mg/dL (0.7-1.3) Estimated GFR (Cockcroft-Gault) 102.2 BUN/Creatinine Ratio 52 (6-20) Glucose Level 107 mg/dL (70-99) Calcium Level 7.7 mg/dL (8.5-10.1) Total Bilirubin 0.4 mg/dL (0.2-1.0) Aspartate Amino Transf (AST/SGOT) 60 U/L (15-37) Alanine Aminotransferase (ALT/SGPT) 80 U/L (16-63) Alkaline Phosphatase 109 U/L (46-116) Total Protein 7.5 g/dL (6.4-8.2) Albumin 1.5 g/dL (3.4-5.0) Albumin/Globulin Ratio 0.3 (1.0-1.7) Laboratory Tests Test 11/01/19 12:35 11/01/19 14:45 11/01/19 23:00 11/02/19 03:40 Urine Collection Type U cath Urine Color Yellow Urine Clarity Cloudy Urine pH 5.5 (<5.0-8.0) Urine Specific [place] 1.020 (1.000-1.030) Urine Protein 100 mg/dL (NEG-TRACE) Urine Glucose (UA) 100 mg/dL (NEG) Urine Ketones (Stick) Negative mg/dL (NEG) Urine Blood Moderate (NEG) Urine Nitrite Negative (NEG) Urine Bilirubin Small (NEG) Urine Urobilinogen Dipstick 1.0 mg/dL (0.2 mg/dL) Urine Leukocyte Esterase Negative (NEG) Urine RBC 6-10 /HPF (0-2) Urine WBC 1-4 /HPF (0-4) Urine Amorphous Sediment Present /HPF Urine Bacteria Few /HPF (0-FEW) Lactic Acid Level 1.9 mmol/L (0.4-2.0) Coronavirus (COVID-19)(PCR) Not detected (NOT DETECT.) White Blood Count 13.3 x10^3/uL (4.0-11.0) Red Blood Count 3.27 x10^6/uL (4.30-5.70) Hemoglobin 9.3 g/dL (13.0-17.5) Hematocrit 30.4 % (39.0-53.0) Mean Corpuscular Volume 93 fL (79-100) Mean Corpuscular Hemoglobin 29 pg (25-35) Mean Corpuscular Hemoglobin Concent 31 g/dL (31-37) Red Cell Distribution Width 17.1 % (11.5-14.5) Platelet Count 236 x10^3/uL (140-400) Neutrophils (%) (Auto) 86 % (31-73) Lymphocytes (%) (Auto) 11 % (24-48) Monocytes (%) (Auto) 4 % (0-9) Eosinophils (%) (Auto) 0 % (0-3) Basophils (%) (Auto) 0 % (0-3) Neutrophils # (Auto) 11.4 x10^3/uL (1.8-7.7) Lymphocytes # (Auto) 1.4 x10^3/uL (1.0-4.8) Monocytes # (Auto) 0.5 x10^3/uL (0.0-1.1) Eosinophils # (Auto) 0.0 x10^3/uL (0.0-0.7) Basophils # (Auto) 0.0 x10^3/uL (0.0-0.2) Sodium Level 161 mmol/L (136-145) Potassium Level 3.2 mmol/L (3.5-5.1) Chloride Level 125 mmol/L (98-107) Carbon Dioxide Level 27 mmol/L (21-32) Anion Gap 9 (6-14) Blood Urea Nitrogen 47 mg/dL (8-26) Creatinine 0.9 mg/dL (0.7-1.3) Estimated GFR (Cockcroft-Gault) 102.2 BUN/Creatinine Ratio 52 (6-20) Glucose Level 107 mg/dL (70-99) Calcium Level 7.7 mg/dL (8.5-10.1) Total Bilirubin 0.4 mg/dL (0.2-1.0) Aspartate Amino Transf (AST/SGOT) 60 U/L (15-37) Alanine Aminotransferase (ALT/SGPT) 80 U/L (16-63) Alkaline Phosphatase 109 U/L (46-116) Total Protein 7.5 g/dL (6.4-8.2) Albumin 1.5 g/dL (3.4-5.0) Albumin/Globulin Ratio 0.3 (1.0-1.7) Medications Active Scripts Medications Dose Route/Sig Max Daily Dose Days Date Category Tylenol (Acetaminophen) 325 Mg Tablet 2 Tab PEG PRN Q8HRS PRN 11/01/19 Reported Trazodone Hcl 50 Mg Tablet 1 Tab PEG QHS 11/01/19 Reported Zoloft (Sertraline Hcl) 50 Mg Tablet 1 Tab PEG DAILY 11/01/19 Reported Calcium 500 + Vit D 200 Tablet (Calcium Carbonate/Vitamin D3) 1 Each Tablet 1 Tab PEG BID 30 11/01/19 Reported Nexium Capsule (Esomeprazole Magnesium) 40 Mg Capsule.dr 1 Cap PO DAILY 11/01/19 Reported Metformin Hcl 500 Mg Tablet 500 Mg PEG DAILY 11/01/19 Reported Gabapentin 600 Mg Tablet 100 Mg PEG HS 11/01/19 Reported Atorvastatin Calcium 40 Mg Tablet 40 Mg PEG HS 11/01/19 Reported Children's Aspirin (Aspirin) 81 Mg Tab.chew 81 Mg PEG DAILY 11/01/19 Reported Impression . Full consult dictated Concur with current medical management respiratory failure multifactorial SARS-CoV-2 negative hypotension related to sepsis RAGHU WADSWORTH MD Nov 02, 2019 11:43
--- NOTE | 2019-11-02 12:08 | CONS ---
DATE OF CONSULTATION: 11/02/2019 ATTENDING PHYSICIAN: Guilherme Ron DO REASON FOR CONSULTATION: The patient seen in pulmonary consultation at the request of Dr. Ron for abnormal x-ray, suspect COVID-19 infection. HISTORY OF PRESENT ILLNESS: The patient is a 64-year-old -[place] male with a history of Alzheimer's disease, previous CVA, unable to obtain history from the patient himself. I have read the Infectious Disease consultation. The patient presented to the Emergency Room from retirement with acute respiratory distress requiring oxygen supplementation. He was hypotensive upon arrival, he was hypoxemic. X-ray revealed bilateral pulmonary infiltrates. The patient was started on IV antibiotics in the Emergency Department. He was seen by the Infectious Disease Service and is currently on broad-spectrum antibiotics. [id number] testing was performed. It came back this morning as negative. During my evaluation, the patient was awake, alert, but not following any commands, not responding to any of my questions. He did not appear to be in any respiratory distress. PAST MEDICAL HISTORY: Cerebrovascular accident with hemiplegia, parkinsonism, Alzheimer's dementia, rheumatoid arthritis, hypothyroidism, dysphagia, type 2 diabetes, bipolar disorder, anxiety disorder, previous history of spinal stenosis in the cervical region. PAST SURGICAL HISTORY: Status post PEG tube placement. FAMILY HISTORY: Unknown. SOCIAL HISTORY: He is a retirement resident. Unknown if he smokes or used to smoke. MEDICATIONS: List was reviewed. REVIEW OF SYSTEMS: Unobtainable secondary to the patient's condition. PHYSICAL EXAMINATION: VITAL SIGNS: Since admission, he has had a T-max of 99.3. He is currently on nasal cannula oxygen. At one point, he required 15 liters of oxygen supplementation. HEENT: Eyes, the sclerae were nonicteric. NECK: Jugular venous distention was not elevated. No lymphadenopathy. CHEST: Full expansion. LUNGS: Crackles throughout both lung dela cruz. No wheezes. CARDIOVASCULAR: Regular rate and rhythm with S1, S2, no S3. ABDOMEN: Soft. PEG in place. EXTREMITIES: Some muscle wasting. No significant edema. NEUROLOGIC: The patient was awake. A detailed neuro exam was not performed. LABORATORY DATA: White count initially was 21,000, hemoglobin and hematocrit were noted. Arterial blood gas; pH of 7.48, PaCO2 of 40, PaO2 of 77. D-dimer was 3.34. Electrolytes were deranged. Sodium was elevated. Potassium was low. Chloride was elevated. BUN was elevated. Albumin was markedly low at 1.5. LDH was elevated. C-reactive protein was elevated. Troponin level was elevated. Serology for [id number]-6 is negative. RADIOLOGICAL DATA: Chest x-ray as indicated above, bilateral pulmonary infiltrates. IMPRESSION: 1. Acute hypoxemic respiratory failure, multifactorial in nature. 2. Septic shock. 3. [id number] negative. 4. Leukocytosis. 5. PENICILLIN ALLERGY. 6. Stage 2 pressure wound on coccyx, present upon admission. 7. Elevated troponin. 8. Deranged electrolytes, hypernatremia and hypokalemia. 9. Neurogenic dysphagia, status post PEG tube placement. 10. History of cerebrovascular accident with hemiplegia. 11. Parkinsonism. 12. Alzheimer's. PLAN: 1. Continue empiric antibiotics. 2. IV fluids. 3. Pressors for mean arterial pressure above 60. 4. Discontinue isolation. 5. Empiric antibiotics per Infectious Disease Service. Total cumulative critical care time of 45 minutes reviewing data, labs, chest x-ray, and formulating a plan. RAGHU WADSWORTH MD DR: GAYATHRI/maribell JOB#: [id number] / [id number]
[2019-11-02] MEDS ORDERED: ACETAMINOPHEN 325 MG TABLET. PO PRN (16:15)
--- NOTE | 2019-11-02 16:30 | PDOC ---
PROGRESS NOTES Chief Complaint Chief Complaint acute hypoxic Respiratory failure, rule out COVID-19. s/p stroke with post CVA syndrome, aphasia sepsis, Stage 2 pressure wound on coccyx, present upon admission. hypernatremia from dehydration, acute vasomotor nephropathy Alzheimer's. History of Present Illness History of Present Illness f?u the r/o COVID pt seen in ICU transfer out as able consider Rehab pulm and ID following Vitals Vitals Vital Signs Date Time Temp Pulse Resp B/P (MAP) Pulse Ox O2 Delivery O2 Flow Rate FiO2 11/02/19 15:00 96 32 111/66 (81) 92 Room Air 11/02/19 12:00 97.2 97.2 11/02/19 05:00 1.0 Physical Exam Physical Exam GENERAL: Propped up in bed, alert, nonverbal, cachexic, in NAD HEENT: Pupils equally round, normal conjunctivae. He refuses to open his mouth for exam. NECK: Supple. LUNGS: Clear to auscultation. No accessory muscle use. HEART: S1 and S2. ABDOMEN: Nondistended, soft, with bowel sounds present. + PEG tube. No grimace or guarding to palpation : Clark in place (10/31) EXTREMITIES: No gross edema or cyanosis. Muscle atrophy. Heel protector on the right. SKIN: Warm to touch. No signs of rash. A small sacrococcygeal pressure wound, stage 2 without signs of infection, as of 10/31. NEUROLOGIC: Alert. He does not respond to questions or follow commands. PIV looks ok General: Alert, Cooperative Extremities: No clubbing Skin: No rashes Labs LABS Laboratory Tests Test 11/01/19 23:00 11/02/19 03:40 Coronavirus (COVID-19)(PCR) Not detected (NOT DETECT.) White Blood Count 13.3 x10^3/uL (4.0-11.0) Red Blood Count 3.27 x10^6/uL (4.30-5.70) Hemoglobin 9.3 g/dL (13.0-17.5) Hematocrit 30.4 % (39.0-53.0) Mean Corpuscular Volume 93 fL (79-100) Mean Corpuscular Hemoglobin 29 pg (25-35) Mean Corpuscular Hemoglobin Concent 31 g/dL (31-37) Red Cell Distribution Width 17.1 % (11.5-14.5) Platelet Count 236 x10^3/uL (140-400) Neutrophils (%) (Auto) 86 % (31-73) Lymphocytes (%) (Auto) 11 % (24-48) Monocytes (%) (Auto) 4 % (0-9) Eosinophils (%) (Auto) 0 % (0-3) Basophils (%) (Auto) 0 % (0-3) Neutrophils # (Auto) 11.4 x10^3/uL (1.8-7.7) Lymphocytes # (Auto) 1.4 x10^3/uL (1.0-4.8) Monocytes # (Auto) 0.5 x10^3/uL (0.0-1.1) Eosinophils # (Auto) 0.0 x10^3/uL (0.0-0.7) Basophils # (Auto) 0.0 x10^3/uL (0.0-0.2) Sodium Level 161 mmol/L (136-145) Potassium Level 3.2 mmol/L (3.5-5.1) Chloride Level 125 mmol/L (98-107) Carbon Dioxide Level 27 mmol/L (21-32) Anion Gap 9 (6-14) Blood Urea Nitrogen 47 mg/dL (8-26) Creatinine 0.9 mg/dL (0.7-1.3) Estimated GFR (Cockcroft-Gault) 102.2 BUN/Creatinine Ratio 52 (6-20) Glucose Level 107 mg/dL (70-99) Calcium Level 7.7 mg/dL (8.5-10.1) Total Bilirubin 0.4 mg/dL (0.2-1.0) Aspartate Amino Transf (AST/SGOT) 60 U/L (15-37) Alanine Aminotransferase (ALT/SGPT) 80 U/L (16-63) Alkaline Phosphatase 109 U/L (46-116) Total Protein 7.5 g/dL (6.4-8.2) Albumin 1.5 g/dL (3.4-5.0) Albumin/Globulin Ratio 0.3 (1.0-1.7) Assessment and Plan Assessmemt and Plan Problems Medical Problems: (1) Dehydration Status: Acute (2) Pneumonia Status: Acute (3) Severe sepsis Status: Acute (4) Suspected COVID-19 virus infection Status: Acute Comment Review of Relevant I have reviewed the following items cele (where applicable) has been applied. Labs Laboratory Tests Test 11/01/19 11:15 11/01/19 12:35 11/01/19 14:45 11/01/19 23:00 White Blood Count 21.3 x10^3/uL (4.0-11.0) Red Blood Count 4.35 x10^6/uL (4.30-5.70) Hemoglobin 12.6 g/dL (13.0-17.5) Hematocrit 40.3 % (39.0-53.0) Mean Corpuscular Volume 93 fL (79-100) Mean Corpuscular Hemoglobin 29 pg (25-35) Mean Corpuscular Hemoglobin Concent 31 g/dL (31-37) Red Cell Distribution Width 17.9 % (11.5-14.5) Platelet Count 377 x10^3/uL (140-400) Neutrophils (%) (Auto) 91 % (31-73) Lymphocytes (%) (Auto) 6 % (24-48) Monocytes (%) (Auto) 3 % (0-9) Eosinophils (%) (Auto) 0 % (0-3) Basophils (%) (Auto) 0 % (0-3) Neutrophils # (Auto) 19.3 x10^3/uL (1.8-7.7) Lymphocytes # (Auto) 1.3 x10^3/uL (1.0-4.8) Monocytes # (Auto) 0.7 x10^3/uL (0.0-1.1) Eosinophils # (Auto) 0.0 x10^3/uL (0.0-0.7) Basophils # (Auto) 0.1 x10^3/uL (0.0-0.2) Segmented Neutrophils % 91 % (35-66) Band Neutrophils % 3 % (0-9) Lymphocytes % 3 % (24-48) Monocytes % 3 % (0-10) Platelet Estimate Adequate (ADEQUATE) Polychromasia Slight Prothrombin Time 15.7 SEC (11.7-14.0) Prothromb Time International Ratio 1.3 (0.8-1.1) Activated Partial Thromboplast Time 31 SEC (24-38) D-Dimer (Lolis) 3.34 ug/mlFEU (0.00-0.50) O2 Saturation 95 % (92-99) Arterial Blood pH 7.48 (7.35-7.45) Arterial Blood pCO2 at Patient Temp 40 mmHg (35-46) Arterial Blood pO2 at Patient Temp 77 mmHg (65-108) Arterial Blood HCO3 29 mmol/L (21-28) Arterial Blood Base Excess 5 mmol/L (-3-3) FiO2 100 Sodium Level 158 mmol/L (136-145) Potassium Level 3.5 mmol/L (3.5-5.1) Chloride Level 116 mmol/L (98-107) Carbon Dioxide Level 33 mmol/L (21-32) Anion Gap 9 (6-14) Blood Urea Nitrogen 62 mg/dL (8-26) Creatinine 1.2 mg/dL (0.7-1.3) Estimated GFR (Cockcroft-Gault) 73.3 BUN/Creatinine Ratio 52 (6-20) Glucose Level 247 mg/dL (70-99) Lactic Acid Level 2.9 mmol/L (0.4-2.0) 1.9 mmol/L (0.4-2.0) Calcium Level 9.4 mg/dL (8.5-10.1) Total Bilirubin 0.4 mg/dL (0.2-1.0) Aspartate Amino Transf (AST/SGOT) 83 U/L (15-37) Alanine Aminotransferase (ALT/SGPT) 123 U/L (16-63) Alkaline Phosphatase 199 U/L (46-116) Lactate Dehydrogenase 251 U/L (85-227) Troponin I Quantitative 0.108 ng/mL (0.000-0.055) C-Reactive Protein, Quantitative 214.5 mg/L (0-3.3) Total Protein 10.7 g/dL (6.4-8.2) Albumin 2.2 g/dL (3.4-5.0) Albumin/Globulin Ratio 0.3 (1.0-1.7) Lipase 172 U/L (73-393) Urine Collection Type U cath Urine Color Yellow Urine Clarity Cloudy Urine pH 5.5 (<5.0-8.0) Urine Specific [place] 1.020 (1.000-1.030) Urine Protein 100 mg/dL (NEG-TRACE) Urine Glucose (UA) 100 mg/dL (NEG) Urine Ketones (Stick) Negative mg/dL (NEG) Urine Blood Moderate (NEG) Urine Nitrite Negative (NEG) Urine Bilirubin Small (NEG) Urine Urobilinogen Dipstick 1.0 mg/dL (0.2 mg/dL) Urine Leukocyte Esterase Negative (NEG) Urine RBC 6-10 /HPF (0-2) Urine WBC 1-4 /HPF (0-4) Urine Amorphous Sediment Present /HPF Urine Bacteria Few /HPF (0-FEW) Coronavirus (COVID-19)(PCR) Not detected (NOT DETECT.) Test 11/02/19 03:40 White Blood Count 13.3 x10^3/uL (4.0-11.0) Red Blood Count 3.27 x10^6/uL (4.30-5.70) Hemoglobin 9.3 g/dL (13.0-17.5) Hematocrit 30.4 % (39.0-53.0) Mean Corpuscular Volume 93 fL (79-100) Mean Corpuscular Hemoglobin 29 pg (25-35) Mean Corpuscular Hemoglobin Concent 31 g/dL (31-37) Red Cell Distribution Width 17.1 % (11.5-14.5) Platelet Count 236 x10^3/uL (140-400) Neutrophils (%) (Auto) 86 % (31-73) Lymphocytes (%) (Auto) 11 % (24-48) Monocytes (%) (Auto) 4 % (0-9) Eosinophils (%) (Auto) 0 % (0-3) Basophils (%) (Auto) 0 % (0-3) Neutrophils # (Auto) 11.4 x10^3/uL (1.8-7.7) Lymphocytes # (Auto) 1.4 x10^3/uL (1.0-4.8) Monocytes # (Auto) 0.5 x10^3/uL (0.0-1.1) Eosinophils # (Auto) 0.0 x10^3/uL (0.0-0.7) Basophils # (Auto) 0.0 x10^3/uL (0.0-0.2) Sodium Level 161 mmol/L (136-145) Potassium Level 3.2 mmol/L (3.5-5.1) Chloride Level 125 mmol/L (98-107) Carbon Dioxide Level 27 mmol/L (21-32) Anion Gap 9 (6-14) Blood Urea Nitrogen 47 mg/dL (8-26) Creatinine 0.9 mg/dL (0.7-1.3) Estimated GFR (Cockcroft-Gault) 102.2 BUN/Creatinine Ratio 52 (6-20) Glucose Level 107 mg/dL (70-99) Calcium Level 7.7 mg/dL (8.5-10.1) Total Bilirubin 0.4 mg/dL (0.2-1.0) Aspartate Amino Transf (AST/SGOT) 60 U/L (15-37) Alanine Aminotransferase (ALT/SGPT) 80 U/L (16-63) Alkaline Phosphatase 109 U/L (46-116) Total Protein 7.5 g/dL (6.4-8.2) Albumin 1.5 g/dL (3.4-5.0) Albumin/Globulin Ratio 0.3 (1.0-1.7) Laboratory Tests Test 11/01/19 23:00 11/02/19 03:40 Coronavirus (COVID-19)(PCR) Not detected (NOT DETECT.) White Blood Count 13.3 x10^3/uL (4.0-11.0) Red Blood Count 3.27 x10^6/uL (4.30-5.70) Hemoglobin 9.3 g/dL (13.0-17.5) Hematocrit 30.4 % (39.0-53.0) Mean Corpuscular Volume 93 fL (79-100) Mean Corpuscular Hemoglobin 29 pg (25-35) Mean Corpuscular Hemoglobin Concent 31 g/dL (31-37) Red Cell Distribution Width 17.1 % (11.5-14.5) Platelet Count 236 x10^3/uL (140-400) Neutrophils (%) (Auto) 86 % (31-73) Lymphocytes (%) (Auto) 11 % (24-48) Monocytes (%) (Auto) 4 % (0-9) Eosinophils (%) (Auto) 0 % (0-3) Basophils (%) (Auto) 0 % (0-3) Neutrophils # (Auto) 11.4 x10^3/uL (1.8-7.7) Lymphocytes # (Auto) 1.4 x10^3/uL (1.0-4.8) Monocytes # (Auto) 0.5 x10^3/uL (0.0-1.1) Eosinophils # (Auto) 0.0 x10^3/uL (0.0-0.7) Basophils # (Auto) 0.0 x10^3/uL (0.0-0.2) Sodium Level 161 mmol/L (136-145) Potassium Level 3.2 mmol/L (3.5-5.1) Chloride Level 125 mmol/L (98-107) Carbon Dioxide Level 27 mmol/L (21-32) Anion Gap 9 (6-14) Blood Urea Nitrogen 47 mg/dL (8-26) Creatinine 0.9 mg/dL (0.7-1.3) Estimated GFR (Cockcroft-Gault) 102.2 BUN/Creatinine Ratio 52 (6-20) Glucose Level 107 mg/dL (70-99) Calcium Level 7.7 mg/dL (8.5-10.1) Total Bilirubin 0.4 mg/dL (0.2-1.0) Aspartate Amino Transf (AST/SGOT) 60 U/L (15-37) Alanine Aminotransferase (ALT/SGPT) 80 U/L (16-63) Alkaline Phosphatase 109 U/L (46-116) Total Protein 7.5 g/dL (6.4-8.2) Albumin 1.5 g/dL (3.4-5.0) Albumin/Globulin Ratio 0.3 (1.0-1.7) Microbiology 11/01/19 Blood Culture - Preliminary, Resulted NO GROWTH AFTER 1 DAY Medications Current Medications Sodium Chloride 1,000 ml @ 1,000 mls/hr 1X ONCE IV Last administered on 11/01/19at 11:41; Start 11/01/19 at 11:30; Stop 11/01/19 at 12:29; Status DC Sodium Chloride 1,000 ml @ 1,000 mls/hr 1X ONCE IV Last administered on 11/01/19at 12:13; Start 11/01/19 at 12:00; Stop 11/01/19 at 12:59; Status DC Levofloxacin/ Dextrose 150 ml @ 100 mls/hr 1X ONCE IV Last administered on 11/01/19at 13:14; Start 11/01/19 at 13:00; Stop 11/01/19 at 14:29; Status DC Sodium Chloride 1,000 ml @ 1,000 mls/hr 1X ONCE IV Last administered on 11/01/19at 14:45; Start 11/01/19 at 14:45; Stop 11/01/19 at 15:44; Status DC Ondansetron HCl (Zofran) 4 mg PRN Q8HRS PRN IV NAUSEA/VOMITING; Start 11/01/19 at 14:45; Stop 11/02/19 at 14:45; Status DC Sodium Chloride 1,000 ml @ 125 mls/hr Q8H IV Last administered on 11/02/19at 03:48; Start 11/01/19 at 14:34; Stop 11/02/19 at 05:29; Status DC Daptomycin 350 mg/ Sodium Chloride 50 ml @ 100 mls/hr ONCE ONCE IV Last administered on 11/01/19at 17:43; Start 11/01/19 at 17:00; Stop 11/01/19 at 17:29; Status DC Linezolid/Dextrose 300 ml @ 300 mls/hr Q12HR IV Last administered on 11/02/19at 09:01; Start 11/01/19 at 21:00 Meropenem 500 mg/ Sodium Chloride 50 ml @ 100 mls/hr Q6HRS IV Last administered on 11/02/19at 11:51; Start 11/01/19 at 18:00 Sodium Chloride 1,000 ml @ 75 mls/hr [id number] IV Last administered on 11/02/19at 05:56; Start 11/02/19 at 05:30 Enoxaparin Sodium (Lovenox Per Pharmacy Prophylaxis Dosing) 1 each PRN DAILY PRN MC SEE COMMENTS; Start 11/02/19 at 16:15 Acetaminophen (Tylenol) 650 mg PRN Q8HRS PRN PO MILD PAIN 1-3; Start 11/02/19 at 16:15 Aspirin (Aspirin Chewable) 81 mg DAILY PEG ; Start 11/02/19 at 17:00 Atorvastatin Calcium (Lipitor) 40 mg HS PEG ; Start 11/02/19 at 21:00 Calcium/Vitamin D (Oscal D 500mg/ 200uts) 1 tab BID PEG ; Start 11/02/19 at 21:00 Sertraline HCl (Zoloft) 50 mg DAILY PEG ; Start 11/02/19 at 17:00 Trazodone HCl (Desyrel) 50 mg QHS PEG ; Start 11/02/19 at 21:00 Lansoprazole (Prevacid) 30 mg DAILYAC PEG ; Start 11/02/19 at 16:30 Enoxaparin Sodium (Lovenox 30mg Syringe) 30 mg Q24H SQ ; Start 11/02/19 at 21:00 Active Scripts Active Reported Tylenol (Acetaminophen) 325 Mg Tablet 2 Tab PEG PRN Q8HRS PRN Trazodone Hcl 50 Mg Tablet 1 Tab PEG QHS Zoloft (Sertraline Hcl) 50 Mg Tablet 1 Tab PEG DAILY Calcium 500 + Vit D 200 Tablet (Calcium Carbonate/Vitamin D3) 1 Each Tablet 1 Tab PEG BID 30 Days Nexium Capsule (Esomeprazole Magnesium) 40 Mg Capsule.dr 1 Cap PO DAILY Metformin Hcl 500 Mg Tablet 500 Mg PEG DAILY Gabapentin 600 Mg Tablet 100 Mg PEG HS Atorvastatin Calcium 40 Mg Tablet 40 Mg PEG HS Children's Aspirin (Aspirin) 81 Mg Tab.chew 81 Mg PEG DAILY Vitals/I & O Vital Sign - Last 24 Hours 11/01/19 11/01/19 11/01/19 11/01/19 16:30 16:45 17:00 18:00 Pulse 124 126 126 128 Resp 27 23 21 19 B/P (MAP) 109/72 (84) 120/73 (89) 115/73 (87) 110/66 (81) Pulse Ox 95 95 98 96 O2 Delivery Nasal Cannula Nasal Cannula Nasal Cannula Nasal Cannula O2 Flow Rate 6.0 6.0 6.0 6.0 11/01/19 11/01/19 11/01/19 11/01/19 19:00 20:00 20:00 21:00 Temp 97.4 97.4 Pulse 125 122 98 Resp 19 26 B/P (MAP) 103/69 (80) 104/68 (80) 102/68 (79) Pulse Ox 97 100 95 O2 Delivery Nasal Cannula Nasal Cannula Nasal Cannula Nasal Cannula O2 Flow Rate 6.0 5.0 5.0 4.0 11/01/19 11/01/19 11/02/19 11/02/19 22:00 23:00 00:00 00:01 Temp 97.0 97.0 Pulse 97 94 94 Resp 24 26 B/P (MAP) 105/48 (67) 110/69 (83) 99/60 (73) Pulse Ox 95 93 95 O2 Delivery Nasal Cannula Nasal Cannula Nasal Cannula Nasal Cannula O2 Flow Rate 2.0 3.0 3.0 3.0 11/02/19 11/02/19 11/02/19 11/02/19 01:00 02:00 03:00 04:00 Temp 96.7 96.7 Pulse 94 94 96 95 Resp 28 26 B/P (MAP) 101/63 (76) 104/67 (79) 104/63 (77) 105/68 (80) Pulse Ox 97 98 98 96 O2 Delivery Nasal Cannula Nasal Cannula Nasal Cannula Nasal Cannula O2 Flow Rate 3.0 3.0 3.0 1.0 11/02/19 11/02/19 11/02/19 11/02/19 04:00 05:00 06:00 07:00 Pulse 96 98 92 Resp 24 28 28 B/P (MAP) 114/70 (85) 104/66 (79) 110/66 (81) Pulse Ox 98 94 95 O2 Delivery Nasal Cannula Nasal Cannula Room Air Room Air O2 Flow Rate 1.0 1.0 11/02/19 11/02/19 11/02/19 11/02/19 08:00 08:00 09:00 10:00 Temp 97.5 97.5 Pulse 89 92 104 Resp 27 23 B/P (MAP) 116/70 (85) 110/69 (83) 110/64 (79) Pulse Ox 94 96 94 O2 Delivery Room Air Room Air Room Air Room Air 11/02/19 11/02/19 11/02/19 11/02/19 11:00 12:00 12:00 13:00 Temp 97.2 97.2 Pulse 100 96 89 Resp 23 31 30 B/P (MAP) 114/70 (85) 106/68 (81) 106/69 (81) Pulse Ox 94 99 100 O2 Delivery Room Air Room Air Room Air Room Air 11/02/19 11/02/19 14:00 15:00 Pulse 95 96 Resp 29 32 B/P (MAP) 109/68 (82) 111/66 (81) Pulse Ox 99 92 O2 Delivery Room Air Room Air Intake and Output 11/01/19 11/01/19 11/02/19 15:00 23:00 07:00 Intake Total 2150 ml 400 ml 1250 ml Output Total 495 ml 745 ml Balance 2150 ml -95 ml 505 ml Nutrition Consultation Dietary Evaluation: Recommendations by RD: Dietary education by RD, Increase Calorie Intake, Protein supplementation Comments: REC TFs per following: Glucerna 1.2@20 ml/hr, increase 10 ml q8 hrs as tolerated to goal rate 55 ml/hr w/100 ml water fluhses q4 hrs or flushes per MD REC liquid MVI (wound prevention) REC Dayron BID via PEG (wound prevention) Expected Outcomes/Goals: TF infusion to meet >75% est needs Malnutrition Findings: Body Fat Depletion (Non Severe: Mild Depletion Weight Status: Overweight Justicifation of Admission Dx: Justifications for Admission: Justification of Admission Dx: Yes Sepsis: Hemodynamic Instability DANDRE MALHOTRA MD Nov 02, 2019 16:30
[2019-11-02] MEDS: LANSOPRAZOLE 30 MG TAB.RAP.DR PEG SCH (16:37)
[2019-11-02] MEDS: ASPIRIN CHEWABLE 81 MG TABLET. PEG SCH (16:37)
[2019-11-02] MEDS: SERTRALINE 50 MG TABLET. PEG SCH (16:37)
[2019-11-02] MEDS: traZODone 50 MG TABLET. PEG SCH (21:11)
[2019-11-02] MEDS: ENOXAPARIN 30 MG/0.3 ML SYRINGE. SQ SCH (21:11)
[2019-11-02] MEDS: ATORVASTATIN CALCIUM 40 MG TABLET. PEG SCH (21:11)
[2019-11-02] MEDS: CALCIUM CARB/VIT D3 500/200 TABLET. PEG SCH (21:11)
[2019-11-02] MEDS ORDERED: ACETAMINOPHEN 650 MG SUPP.RECT. PR PRN (22:45)
[2019-11-03 03:05] VITALS: BP 94/50
[2019-11-03] MEDS: MEROPENEM 500 MG in IV NORMAL SALINE 50ML 50 ML IV SCH ×4 (06:26→17:57)
[2019-11-03 07:00] VITALS: BP 108/65
[2019-11-03] MEDS: IV 1/2 NORMAL SALINE 1,000 ML IV SCH ×2 (08:10→21:11)
[2019-11-03] MEDS: LANSOPRAZOLE 30 MG TAB.RAP.DR PEG SCH (09:35)
[2019-11-03] MEDS: SERTRALINE 50 MG TABLET. PEG SCH (09:35)
[2019-11-03] MEDS: CALCIUM CARB/VIT D3 500/200 TABLET. PEG SCH ×2 (09:35→21:10)
[2019-11-03] MEDS: ASPIRIN CHEWABLE 81 MG TABLET. PEG SCH (09:35)
--- NOTE | 2019-11-03 10:51 | PDOC ---
PULMONARY PROGRESS NOTES Subjective Pt. is non-verbal nursing reports no overnight concerns Vitals Vital Signs Date Time Temp Pulse Resp B/P (MAP) Pulse Ox O2 Delivery O2 Flow Rate FiO2 11/03/19 07:00 97.6 100 16 108/65 (79) 93 Nasal Cannula 5.0 97.6 Comments unable to obtain non-verbal General: Alert Cardiovascular: S1, S2 Abdomen: Soft, Non-tender Neuro Exam: Alert Extremities: No Edema Skin: Warm Labs Laboratory Tests Test 11/01/19 11:15 11/01/19 12:35 11/01/19 14:45 11/01/19 23:00 White Blood Count 21.3 x10^3/uL (4.0-11.0) Red Blood Count 4.35 x10^6/uL (4.30-5.70) Hemoglobin 12.6 g/dL (13.0-17.5) Hematocrit 40.3 % (39.0-53.0) Mean Corpuscular Volume 93 fL (79-100) Mean Corpuscular Hemoglobin 29 pg (25-35) Mean Corpuscular Hemoglobin Concent 31 g/dL (31-37) Red Cell Distribution Width 17.9 % (11.5-14.5) Platelet Count 377 x10^3/uL (140-400) Neutrophils (%) (Auto) 91 % (31-73) Lymphocytes (%) (Auto) 6 % (24-48) Monocytes (%) (Auto) 3 % (0-9) Eosinophils (%) (Auto) 0 % (0-3) Basophils (%) (Auto) 0 % (0-3) Neutrophils # (Auto) 19.3 x10^3/uL (1.8-7.7) Lymphocytes # (Auto) 1.3 x10^3/uL (1.0-4.8) Monocytes # (Auto) 0.7 x10^3/uL (0.0-1.1) Eosinophils # (Auto) 0.0 x10^3/uL (0.0-0.7) Basophils # (Auto) 0.1 x10^3/uL (0.0-0.2) Segmented Neutrophils % 91 % (35-66) Band Neutrophils % 3 % (0-9) Lymphocytes % 3 % (24-48) Monocytes % 3 % (0-10) Platelet Estimate Adequate (ADEQUATE) Polychromasia Slight Prothrombin Time 15.7 SEC (11.7-14.0) Prothromb Time International Ratio 1.3 (0.8-1.1) Activated Partial Thromboplast Time 31 SEC (24-38) D-Dimer (Lolis) 3.34 ug/mlFEU (0.00-0.50) O2 Saturation 95 % (92-99) Arterial Blood pH 7.48 (7.35-7.45) Arterial Blood pCO2 at Patient Temp 40 mmHg (35-46) Arterial Blood pO2 at Patient Temp 77 mmHg (65-108) Arterial Blood HCO3 29 mmol/L (21-28) Arterial Blood Base Excess 5 mmol/L (-3-3) FiO2 100 Sodium Level 158 mmol/L (136-145) Potassium Level 3.5 mmol/L (3.5-5.1) Chloride Level 116 mmol/L (98-107) Carbon Dioxide Level 33 mmol/L (21-32) Anion Gap 9 (6-14) Blood Urea Nitrogen 62 mg/dL (8-26) Creatinine 1.2 mg/dL (0.7-1.3) Estimated GFR (Cockcroft-Gault) 73.3 BUN/Creatinine Ratio 52 (6-20) Glucose Level 247 mg/dL (70-99) Lactic Acid Level 2.9 mmol/L (0.4-2.0) 1.9 mmol/L (0.4-2.0) Calcium Level 9.4 mg/dL (8.5-10.1) Total Bilirubin 0.4 mg/dL (0.2-1.0) Aspartate Amino Transf (AST/SGOT) 83 U/L (15-37) Alanine Aminotransferase (ALT/SGPT) 123 U/L (16-63) Alkaline Phosphatase 199 U/L (46-116) Lactate Dehydrogenase 251 U/L (85-227) Troponin I Quantitative 0.108 ng/mL (0.000-0.055) C-Reactive Protein, Quantitative 214.5 mg/L (0-3.3) Total Protein 10.7 g/dL (6.4-8.2) Albumin 2.2 g/dL (3.4-5.0) Albumin/Globulin Ratio 0.3 (1.0-1.7) Lipase 172 U/L (73-393) Urine Collection Type U cath Urine Color Yellow Urine Clarity Cloudy Urine pH 5.5 (<5.0-8.0) Urine Specific [place] 1.020 (1.000-1.030) Urine Protein 100 mg/dL (NEG-TRACE) Urine Glucose (UA) 100 mg/dL (NEG) Urine Ketones (Stick) Negative mg/dL (NEG) Urine Blood Moderate (NEG) Urine Nitrite Negative (NEG) Urine Bilirubin Small (NEG) Urine Urobilinogen Dipstick 1.0 mg/dL (0.2 mg/dL) Urine Leukocyte Esterase Negative (NEG) Urine RBC 6-10 /HPF (0-2) Urine WBC 1-4 /HPF (0-4) Urine Amorphous Sediment Present /HPF Urine Bacteria Few /HPF (0-FEW) Coronavirus (COVID-19)(PCR) Not detected (NOT DETECT.) Test 11/02/19 03:40 11/03/19 05:49 White Blood Count 13.3 x10^3/uL (4.0-11.0) Red Blood Count 3.27 x10^6/uL (4.30-5.70) Hemoglobin 9.3 g/dL (13.0-17.5) Hematocrit 30.4 % (39.0-53.0) Mean Corpuscular Volume 93 fL (79-100) Mean Corpuscular Hemoglobin 29 pg (25-35) Mean Corpuscular Hemoglobin Concent 31 g/dL (31-37) Red Cell Distribution Width 17.1 % (11.5-14.5) Platelet Count 236 x10^3/uL (140-400) Neutrophils (%) (Auto) 86 % (31-73) Lymphocytes (%) (Auto) 11 % (24-48) Monocytes (%) (Auto) 4 % (0-9) Eosinophils (%) (Auto) 0 % (0-3) Basophils (%) (Auto) 0 % (0-3) Neutrophils # (Auto) 11.4 x10^3/uL (1.8-7.7) Lymphocytes # (Auto) 1.4 x10^3/uL (1.0-4.8) Monocytes # (Auto) 0.5 x10^3/uL (0.0-1.1) Eosinophils # (Auto) 0.0 x10^3/uL (0.0-0.7) Basophils # (Auto) 0.0 x10^3/uL (0.0-0.2) Sodium Level 161 mmol/L (136-145) Potassium Level 3.2 mmol/L (3.5-5.1) Chloride Level 125 mmol/L (98-107) Carbon Dioxide Level 27 mmol/L (21-32) Anion Gap 9 (6-14) Blood Urea Nitrogen 47 mg/dL (8-26) Creatinine 0.9 mg/dL (0.7-1.3) Estimated GFR (Cockcroft-Gault) 102.2 BUN/Creatinine Ratio 52 (6-20) Glucose Level 107 mg/dL (70-99) Calcium Level 7.7 mg/dL (8.5-10.1) Total Bilirubin 0.4 mg/dL (0.2-1.0) Aspartate Amino Transf (AST/SGOT) 60 U/L (15-37) Alanine Aminotransferase (ALT/SGPT) 80 U/L (16-63) Alkaline Phosphatase 109 U/L (46-116) Total Protein 7.5 g/dL (6.4-8.2) Albumin 1.5 g/dL (3.4-5.0) Albumin/Globulin Ratio 0.3 (1.0-1.7) Glucose (Fingerstick) 106 mg/dL (70-99) Laboratory Tests Test 11/03/19 05:49 Glucose (Fingerstick) 106 mg/dL (70-99) Medications Active Scripts Medications Dose Route/Sig Max Daily Dose Days Date Category Tylenol (Acetaminophen) 325 Mg Tablet 2 Tab PEG PRN Q8HRS PRN 11/01/19 Reported Trazodone Hcl 50 Mg Tablet 1 Tab PEG QHS 11/01/19 Reported Zoloft (Sertraline Hcl) 50 Mg Tablet 1 Tab PEG DAILY 11/01/19 Reported Calcium 500 + Vit D 200 Tablet (Calcium Carbonate/Vitamin D3) 1 Each Tablet 1 Tab PEG BID 30 11/01/19 Reported Nexium Capsule (Esomeprazole Magnesium) 40 Mg Capsule. 1 Cap PO DAILY 11/01/19 Reported Metformin Hcl 500 Mg Tablet 500 Mg PEG DAILY 11/01/19 Reported Gabapentin 600 Mg Tablet 100 Mg PEG HS 11/01/19 Reported Atorvastatin Calcium 40 Mg Tablet 40 Mg PEG HS 11/01/19 Reported Children's Aspirin (Aspirin) 81 Mg Tab.chew 81 Mg PEG DAILY 11/01/19 Reported Comments IMPRESSION: Bilateral lung infiltrates or pulmonary edema more prominent within the lower lung zones. Minimal right-sided pleural effusion. Given normal heart size, the lung infiltrates may represent pneumonia or aspiration pneumonitis. Impression . IMPRESSION: 1. Acute hypoxemic respiratory failure, multifactorial in nature. 2. Septic shock. 3. [id number] negative. 4. Leukocytosis. 5. PENICILLIN ALLERGY. 6. Stage 2 pressure wound on coccyx, present upon admission. 7. Elevated troponin. 8. Deranged electrolytes, hypernatremia and hypokalemia. 9. Neurogenic dysphagia, status post PEG tube placement. 10. History of cerebrovascular accident with hemiplegia. 11. Parkinsonism. 12. Alzheimer's. Plan . PLAN: Supplemental oxygen as needed ABX per ID IV fluids continue TF for nutrition DVT/GI PPX D/W RAGHU CHAVEZ MD Nov 03, 2019 10:51
[2019-11-03 11:00] VITALS: BP 107/64
--- NOTE | 2019-11-03 12:04 | PDOC ---
Infectious Disease Note Subjective Subjective Transferred to 6 floor Nonverbal No fevers last 48 hours Now on 5L O2 Tube feedings 30 ml/hr ROS ROS unable to obtained due to patient's condition Vital Sign Vital Signs Vital Signs Date Time Temp Pulse Resp B/P (MAP) Pulse Ox O2 Delivery O2 Flow Rate FiO2 11/03/19 11:00 96.3 100 16 107/64 (78) 91 Nasal Cannula 5.0 96.3 Physical Exam PHYSICAL EXAM GENERAL: Propped up in bed, alert, nonverbal, cachexic, in NAD HEENT: Pupils equally round, normal conjunctivae. He refuses to open his mouth for exam. NECK: Supple. LUNGS: Clear to auscultation. No accessory muscle use. HEART: S1 and S2. ABDOMEN: Nondistended, soft, with bowel sounds present. + PEG tube. No grimace or guarding to palpation : Clark in place (10/31) EXTREMITIES: No gross edema or cyanosis. Muscle atrophy. Heel protector on the right. SKIN: Warm to touch. No signs of rash. A small sacrococcygeal pressure wound, stage 2 without signs of infection, as of 10/31. NEUROLOGIC: Alert. He does not respond to questions or follow commands. PIV looks ok Labs Lab Laboratory Tests Test 11/03/19 05:49 Glucose (Fingerstick) 106 mg/dL (70-99) Micro Microbiology 11/01/19 Blood Culture - Preliminary, Resulted NO GROWTH AFTER 1 DAY Objective Assessment Sepsis with hypotension, POA. improving Suspected COVID-19 infection vs aspiration. Covid-19 negative, 10/31 Acute respiratory failure, O2 5L Leukocytosis - better Penicillin allergy, reaction unknown Coccyx pressure wound, stage II, POA Transaminitis. LDH 215, lipase 172 Elevated troponin Hypernatremia Oropharygeal dysphagia maintained on tube feedings h/o CVA with hemiplegia Parkinson's disease Alzheimer's disease [facility] resident Plan Plan of Care Continue Zyvox/meropenem, 10/31 One time dose of Levaquin in ER, 10/31 One time dose dapto, 10/31 CRP 214.5 BC neg to date Maintain aspiration precautions Local wound care and offloading as directed Patient discussed with HOT ROOM ATTENDANT. Chart reviewed in detail. Above plan co-formulated and agreed upon with HOT ROOM ATTENDANT on 11/03/2019. ARON HAY APRN Nov 03, 2019 12:04 KING CHRISTIANSON MD Nov 04, 2019 19:57
--- NOTE | 2019-11-03 12:15 | PDOC ---
[employer] [facility] PROGRESS NOTE Chief Complaint Chief Complaint acute hypoxic Respiratory failure, rule out COVID-19. s/p stroke with post CVA syndrome, aphasia sepsis, Stage 2 pressure wound on coccyx, present upon admission. hypernatremia from dehydration, acute vasomotor nephropathy Alzheimer's. History of Present Illness History of Present Illness 11/03/2019 Patient seen and examined Chart reviewed Discussed with RN Vitals/I&O Vitals/I&O: Vital Signs Date Time Temp Pulse Resp B/P (MAP) Pulse Ox O2 Delivery O2 Flow Rate FiO2 11/03/19 11:00 96.3 100 16 107/64 (78) 91 Nasal Cannula 5.0 96.3 I & O 11/02/19 11/02/19 11/03/19 15:00 23:00 07:00 Intake Total 0 ml 60 ml Output Total 435 ml 500 ml Balance -435 ml 0 ml -440 ml Physical Exam Physical Exam: GENERAL: Propped up in bed, alert, nonverbal, cachexic, in NAD HEENT: Pupils equally round, normal conjunctivae. He refuses to open his mouth for exam. NECK: Supple. LUNGS: Clear to auscultation. No accessory muscle use. HEART: S1 and S2. ABDOMEN: Nondistended, soft, with bowel sounds present. + PEG tube. No grimace or guarding to palpation : Clark in place (10/31) EXTREMITIES: No gross edema or cyanosis. Muscle atrophy. Heel protector on the right. SKIN: Warm to touch. No signs of rash. A small sacrococcygeal pressure wound, stage 2 without signs of infection, as of 10/31. NEUROLOGIC: Alert. He does not respond to questions or follow commands. PIV looks ok General: Alert, Cooperative Extremities: No clubbing Skin: No rashes Labs Labs: Laboratory Tests Test 11/03/19 05:49 Glucose (Fingerstick) 106 mg/dL (70-99) Assessment and Plan Assessmemt and Plan Problems Medical Problems: (1) Dehydration Status: Acute (2) Pneumonia Status: Acute (3) Severe sepsis Status: Acute (4) Suspected COVID-19 virus infection Status: Acut acute hypoxic Respiratory failure, rule out COVID-19. s/p stroke with post CVA syndrome, aphasia sepsis, Stage 2 pressure wound on coccyx, present upon admission. hypernatremia from dehydration, acute vasomotor nephropathy Alzheimer's. Plan IV antibiotics per infectious disease (Zosyn and meropenem) Home meds DVT prophylaxis Full code Trend labs PT OT Wound care Appreciate subspecialist input Per infectious disease please see below Assessment Sepsis with hypotension, POA. improving Suspected COVID-19 infection vs aspiration. Covid-19 negative, 10/31 Acute respiratory failure, O2 5L Leukocytosis - better Penicillin allergy, reaction unknown Coccyx pressure wound, stage II, POA Transaminitis. LDH 215, lipase 172 Elevated troponin Hypernatremia Oropharygeal dysphagia maintained on tube feedings h/o CVA with hemiplegia Parkinson's disease Alzheimer's disease residential resident Plan Plan of Care Continue Zyvox/meropenem, 10/31 One time dose of Levaquin in ER, 10/31 One time dose dapto, 10/31 CRP 214.5 BC neg to date Maintain aspiration precautions Local wound care and offloading as directed Comment Review of Relevant I have reviewed the following items cele (where applicable) has been applied. Medications: Current Medications Medications (Trade) Dose Ordered Sig/Radha Route PRN Reason Start Time Stop Time Status Last Admin Dose Admin Aspirin (Aspirin Chewable) 81 mg DAILY PEG 11/02/19 17:00 11/03/19 09:35 Atorvastatin Calcium (Lipitor) 40 mg HS PEG 11/02/19 21:00 11/02/19 21:11 Calcium/Vitamin D (Oscal D 500mg/ 200uts) 1 tab BID PEG 11/02/19 21:00 11/03/19 09:35 Sertraline HCl (Zoloft) 50 mg DAILY PEG 11/02/19 17:00 11/03/19 09:35 Trazodone HCl (Desyrel) 50 mg QHS PEG 11/02/19 21:00 11/02/19 21:11 Lansoprazole (Prevacid) 30 mg DAILYAC PEG 11/02/19 16:30 11/03/19 09:35 Enoxaparin Sodium (Lovenox 30mg Syringe) 30 mg Q24H SQ 11/02/19 21:00 11/02/19 21:11 Acetaminophen (Tylenol Supp) 650 mg PRN Q6HRS PRN [place] MILD PAIN / TEMP > 100.3'F 11/02/19 22:45 7/3/20 22:59 Justicifation of Admission Dx: Justifications for Admission: Justification of Admission Dx: Yes Sepsis: Hemodynamic Instability KONSTANTIN MOSS III DO Nov 03, 2019 12:15
--- NOTE | 2019-11-03 12:22 | NUR ---
TUBE FEEDING RATE INCREASED FROM 30CC TO 40CC/HR PER THIS VALVE ASSEMBLER AT THIS TIME.
[2019-11-03 15:00] VITALS: BP 115/75
[2019-11-03 19:52] VITALS: BP 117/73
[2019-11-03] MEDS: ATORVASTATIN CALCIUM 40 MG TABLET. PEG SCH (21:10)
[2019-11-03] MEDS: ENOXAPARIN 30 MG/0.3 ML SYRINGE. SQ SCH (21:10)
[2019-11-03] MEDS: traZODone 50 MG TABLET. PEG SCH (21:10)
[2019-11-03 23:13] VITALS: BP 110/59
[2019-11-04] MEDS: MEROPENEM 500 MG in IV NORMAL SALINE 50ML 50 ML IV SCH ×4 (00:04→17:45)
[2019-11-04 03:23] VITALS: BP 108/63
[2019-11-04 07:35] VITALS: BP 116/72
[2019-11-04] MEDS: LANSOPRAZOLE 30 MG TAB.RAP.DR PEG SCH (07:42)
[2019-11-04] MEDS: CALCIUM CARB/VIT D3 500/200 TABLET. PEG SCH ×2 (07:42→21:27)
[2019-11-04] MEDS: SERTRALINE 50 MG TABLET. PEG SCH (07:42)
[2019-11-04] MEDS: ASPIRIN CHEWABLE 81 MG TABLET. PEG SCH (07:42)
[2019-11-04] MEDS: IV 1/2 NORMAL SALINE 1,000 ML IV SCH (07:47)
[2019-11-04 11:13] VITALS: BP 114/77
--- NOTE | 2019-11-04 13:17 | PDOC ---
PULMONARY PROGRESS NOTES Subjective Pt. is non-verbal nursing reports no overnight concerns Vitals Vital Signs Date Time Temp Pulse Resp B/P (MAP) Pulse Ox O2 Delivery O2 Flow Rate FiO2 11/04/19 11:13 98.1 98 24 114/77 (89) 94 Nasal Cannula 5.0 98.1 Comments unable to obtain non-verbal General: Alert Cardiovascular: S1, S2 Abdomen: Soft, Non-tender Neuro Exam: Alert Extremities: No Edema Skin: Warm Labs Laboratory Tests Test 11/03/19 05:49 11/03/19 12:28 11/04/19 00:11 11/04/19 06:55 Glucose (Fingerstick) 106 mg/dL (70-99) 131 mg/dL (70-99) 130 mg/dL (70-99) 118 mg/dL (70-99) Test 11/04/19 11:43 Glucose (Fingerstick) 122 mg/dL (70-99) Laboratory Tests Test 11/04/19 00:11 11/04/19 06:55 11/04/19 11:43 Glucose (Fingerstick) 130 mg/dL (70-99) 118 mg/dL (70-99) 122 mg/dL (70-99) Medications Active Scripts Medications Dose Route/Sig Max Daily Dose Days Date Category Tylenol (Acetaminophen) 325 Mg Tablet 2 Tab PEG PRN Q8HRS PRN 11/01/19 Reported Trazodone Hcl 50 Mg Tablet 1 Tab PEG QHS 11/01/19 Reported Zoloft (Sertraline Hcl) 50 Mg Tablet 1 Tab PEG DAILY 11/01/19 Reported Calcium 500 + Vit D 200 Tablet (Calcium Carbonate/Vitamin D3) 1 Each Tablet 1 Tab PEG BID 30 11/01/19 Reported Nexium Capsule (Esomeprazole Magnesium) 40 Mg Capsule. 1 Cap PO DAILY 11/01/19 Reported Metformin Hcl 500 Mg Tablet 500 Mg PEG DAILY 11/01/19 Reported Gabapentin 600 Mg Tablet 100 Mg PEG HS 11/01/19 Reported Atorvastatin Calcium 40 Mg Tablet 40 Mg PEG HS 11/01/19 Reported Children's Aspirin (Aspirin) 81 Mg Tab.chew 81 Mg PEG DAILY 11/01/19 Reported Comments IMPRESSION: Bilateral lung infiltrates or pulmonary edema more prominent within the lower lung zones. Minimal right-sided pleural effusion. Given normal heart size, the lung infiltrates may represent pneumonia or aspiration pneumonitis. Impression . IMPRESSION: 1. Acute hypoxemic respiratory failure, multifactorial in nature.--improved 2. Septic shock.--resolved 3. YVYX-[id number]-8 negative. 4. Leukocytosis. 5. PENICILLIN ALLERGY. 6. Stage 2 pressure wound on coccyx, present upon admission. 7. Elevated troponin. 8. Deranged electrolytes, hypernatremia and hypokalemia. 9. Neurogenic dysphagia, status post PEG tube placement. 10. History of cerebrovascular accident with hemiplegia. 11. Parkinsonism. 12. Alzheimer's. Plan . PLAN: Supplemental oxygen as needed ABX per ID continue TF for nutrition DVT/GI PPX D/W RAGHU CHAVEZ MD Nov 04, 2019 13:17
--- NOTE | 2019-11-04 13:32 | PDOC ---
[facility] [facility] PROGRESS NOTE Chief Complaint Chief Complaint acute hypoxic Respiratory failure, rule out COVID-19. s/p stroke with post CVA syndrome, aphasia sepsis, Stage 2 pressure wound on coccyx, present upon admission. hypernatremia from dehydration, acute vasomotor nephropathy Alzheimer's. History of Present Illness History of Present Illness 11/04/2019 Patient seen and examined He has heavy respirations On IV Glucerna at 55 cc an hour Has IV Zyvox pain as well Chart reviewed Discussed with RN He appears quite ill 11/03/2019 Patient seen and examined Chart reviewed Discussed with RN Vitals/I&O Vitals/I&O: Vital Signs Date Time Temp Pulse Resp B/P (MAP) Pulse Ox O2 Delivery O2 Flow Rate FiO2 11/04/19 11:13 98.1 98 24 114/77 (89) 94 Nasal Cannula 5.0 98.1 I & O 11/03/19 11/03/19 11/04/19 15:00 23:00 07:00 Intake Total 100 ml 220 ml 340 ml Output Total 600 ml Balance 100 ml 220 ml -260 ml Physical Exam Physical Exam: GENERAL: Propped up in bed, alert, nonverbal, cachexic, in NAD HEENT: Pupils equally round, normal conjunctivae. He refuses to open his mouth for exam. NECK: Supple. LUNGS: Clear to auscultation. No accessory muscle use. HEART: S1 and S2. ABDOMEN: Nondistended, soft, with bowel sounds present. + PEG tube. No grimace or guarding to palpation : Clark in place (10/31) EXTREMITIES: No gross edema or cyanosis. Muscle atrophy. Heel protector on the right. SKIN: Warm to touch. No signs of rash. A small sacrococcygeal pressure wound, stage 2 without signs of infection, as of 10/31. NEUROLOGIC: Alert. He does not respond to questions or follow commands. PIV looks ok General: Alert, Cooperative Extremities: No clubbing Skin: No rashes Labs Labs: Laboratory Tests Test 11/04/19 00:11 11/04/19 06:55 11/04/19 11:43 Glucose (Fingerstick) 130 mg/dL (70-99) 118 mg/dL (70-99) 122 mg/dL (70-99) Assessment and Plan Assessmemt and Plan Problems Medical Problems: (1) Dehydration Status: Acute (2) Pneumonia Status: Acute (3) Severe sepsis Status: Acute (4) Suspected COVID-19 virus infection Status: Acute Sepsis with hypotension, POA. improving Suspected COVID-19 infection vs aspiration. Covid-19 negative, 7/2 Acute respiratory failure, O2 5L Leukocytosis - better Penicillin allergy, reaction unknown Coccyx pressure wound, stage II, POA Transaminitis. LDH 215, lipase 172 Elevated troponin Hypernatremia Oropharygeal dysphagia maintained on tube feedings h/o CVA with hemiplegia Parkinson's disease Alzheimer's disease correction resident Plan Plan of Care Continue Zyvox/meropenem, 10/31 One time dose of Levaquin in ER, 10/31 One time dose dapto, 10/31 CRP 214.5 BC neg to date Maintain aspiration precautions Local wound care and offloading as directed Comment Review of Relevant I have reviewed the following items cele (where applicable) has been applied. Justicifation of Admission Dx: Justifications for Admission: Justification of Admission Dx: Yes Sepsis: Hemodynamic Instability KONSTANTIN MOSS III DO Nov 04, 2019 13:32
--- NOTE | 2019-11-04 13:39 | PDOC ---
Infectious Disease Note Subjective Subjective Nonverbal No fevers last 48 hours Remains on 5L O2 Tube feedings up to 55 ml/hr + BM ROS ROS unobtainable Vital Sign Vital Signs Vital Signs Date Time Temp Pulse Resp B/P (MAP) Pulse Ox O2 Delivery O2 Flow Rate FiO2 11/04/19 11:13 98.1 98 24 114/77 (89) 94 Nasal Cannula 5.0 98.1 Physical Exam PHYSICAL EXAM GENERAL: Propped up in bed, resting quietly, opens eyes briefly to voice, appears comfortable. HEENT: Pupils equally round, normal conjunctivae. He refuses to open his mouth for exam. NECK: Supple. LUNGS: Clear to auscultation. No accessory muscle use. HEART: S1 and S2. ABDOMEN: Nondistended, soft, with bowel sounds present. + PEG tube. No grimace or guarding to palpation : Clark in place (10/31) EXTREMITIES: No gross edema or cyanosis. SKIN: Warm to touch. No signs of rash. A small sacrococcygeal pressure wound, stage 2 without signs of infection, as of 10/31. NEUROLOGIC: He does not respond to questions or follow commands. PIV looks ok Labs Lab Laboratory Tests Test 11/04/19 00:11 11/04/19 06:55 11/04/19 11:43 Glucose (Fingerstick) 130 mg/dL (70-99) 118 mg/dL (70-99) 122 mg/dL (70-99) Micro Microbiology 11/01/19 Blood Culture - Preliminary, Resulted NO GROWTH AFTER 3 DAY Objective Assessment Sepsis with hypotension, POA. improving Suspected COVID-19 infection vs aspiration. Covid-19 negative, 10/31 Acute respiratory failure, O2 5L Leukocytosis - better Penicillin allergy, reaction unknown Coccyx pressure wound, stage II, POA Transaminitis. LDH 215, lipase 172 Elevated troponin Hypernatremia Oropharygeal dysphagia maintained on tube feedings h/o CVA with hemiplegia Parkinson's disease Alzheimer's disease [facility] resident Plan Plan of Care Continue Zyvox/meropenem, 10/31 One time dose of Levaquin in ER, 10/31 One time dose dapto, 10/31 CRP 214.5 BC neg to date Maintain aspiration precautions Local wound care and offloading as directed Patient discussed with LICENSING REGISTRATION EXAMINER. Chart reviewed in detail. Above plan co-formulated and agreed upon with LICENSING REGISTRATION EXAMINER on 11/04/2019. ARON HAY APRN Nov 04, 2019 13:39 KING CHRISTIANSON MD Nov 04, 2019 19:58
[2019-11-04 15:22] VITALS: BP 120/70
[2019-11-04 19:50] VITALS: BP 126/71
[2019-11-04] MEDS: traZODone 50 MG TABLET. PEG SCH (21:27)
[2019-11-04] MEDS: ENOXAPARIN 30 MG/0.3 ML SYRINGE. SQ SCH (21:27)
[2019-11-04] MEDS: ATORVASTATIN CALCIUM 40 MG TABLET. PEG SCH (21:27)
[2019-11-04 23:09] VITALS: BP 122/60
[2019-11-05] MEDS: MEROPENEM 500 MG in IV NORMAL SALINE 50ML 50 ML IV SCH ×3 (00:16→12:39)
[2019-11-05] MEDS: IV 1/2 NORMAL SALINE 1,000 ML IV SCH ×2 (00:18→13:30)
[2019-11-05 03:14] VITALS: BP 120/54
[2019-11-05 07:00] VITALS: BP 120/67
[2019-11-05] MEDS: ASPIRIN CHEWABLE 81 MG TABLET. PEG SCH (08:51)
[2019-11-05] MEDS: SERTRALINE 50 MG TABLET. PEG SCH (08:51)
[2019-11-05] MEDS: LANSOPRAZOLE 30 MG TAB.RAP.DR PEG SCH (08:51)
[2019-11-05] MEDS: CALCIUM CARB/VIT D3 500/200 TABLET. PEG SCH ×2 (08:51→23:12)
--- NOTE | 2019-11-05 09:05 | PDOC ---
PULMONARY PROGRESS NOTES Subjective Patient more awake today, answers yes Vitals Vital Signs Date Time Temp Pulse Resp B/P (MAP) Pulse Ox O2 Delivery O2 Flow Rate FiO2 11/05/19 07:00 97.8 95 18 120/67 (84) 96 Nasal Cannula 5.0 97.8 Comments unable to obtain non-verbal General: Alert Cardiovascular: S1, S2 Abdomen: Soft, Non-tender Neuro Exam: Alert Extremities: No Edema Skin: Warm Labs Laboratory Tests Test 11/03/19 12:28 11/04/19 00:11 11/04/19 06:55 11/04/19 11:43 Glucose (Fingerstick) 131 mg/dL (70-99) 130 mg/dL (70-99) 118 mg/dL (70-99) 122 mg/dL (70-99) Test 11/04/19 18:22 11/05/19 00:05 11/05/19 06:19 Glucose (Fingerstick) 109 mg/dL (70-99) 148 mg/dL (70-99) 102 mg/dL (70-99) Laboratory Tests Test 11/04/19 11:43 11/04/19 18:22 11/05/19 00:05 11/05/19 06:19 Glucose (Fingerstick) 122 mg/dL (70-99) 109 mg/dL (70-99) 148 mg/dL (70-99) 102 mg/dL (70-99) Medications Active Scripts Medications Dose Route/Sig Max Daily Dose Days Date Category Tylenol (Acetaminophen) 325 Mg Tablet 2 Tab PEG PRN Q8HRS PRN 11/01/19 Reported Trazodone Hcl 50 Mg Tablet 1 Tab PEG QHS 11/01/19 Reported Zoloft (Sertraline Hcl) 50 Mg Tablet 1 Tab PEG DAILY 11/01/19 Reported Calcium 500 + Vit D 200 Tablet (Calcium Carbonate/Vitamin D3) 1 Each Tablet 1 Tab PEG BID 30 11/01/19 Reported Nexium Capsule (Esomeprazole Magnesium) 40 Mg Capsule. 1 Cap PO DAILY 11/01/19 Reported Metformin Hcl 500 Mg Tablet 500 Mg PEG DAILY 11/01/19 Reported Gabapentin 600 Mg Tablet 100 Mg PEG HS 11/01/19 Reported Atorvastatin Calcium 40 Mg Tablet 40 Mg PEG HS 11/01/19 Reported Children's Aspirin (Aspirin) 81 Mg Tab.chew 81 Mg PEG DAILY 11/01/19 Reported Comments IMPRESSION: Bilateral lung infiltrates or pulmonary edema more prominent within the lower lung zones. Minimal right-sided pleural effusion. Given normal heart size, the lung infiltrates may represent pneumonia or aspiration pneumonitis. Impression . IMPRESSION: 1. Acute hypoxemic respiratory failure, multifactorial in nature.--improved 2. Septic shock.--resolved 3. OMLS-[id number]-6 negative. 4. Leukocytosis. 5. PENICILLIN ALLERGY. 6. Stage 2 pressure wound on coccyx, present upon admission. 7. Elevated troponin. 8. Deranged electrolytes, hypernatremia and hypokalemia. 9. Neurogenic dysphagia, status post PEG tube placement. 10. History of cerebrovascular accident with hemiplegia. 11. Parkinsonism. 12. Alzheimer's. 13. Metabolic toxic encephalopathy, improved Plan . Continue the same Supplemental oxygen as needed ABX per ID continue TF for nutrition DVT/GI PPX D/W RAGHU CHAVEZ MD Nov 05, 2019 09:05
[2019-11-05 10:56] VITALS: BP 130/71
--- NOTE | 2019-11-05 12:11 | SNU/HH DC ---
DISCHARGE ORDERS DISCHARGE INFORMATION: FINAL DIAGNOSIS Problems Medical Problems: (1) Dehydration Status: Acute (2) Pneumonia Status: Acute (3) Severe sepsis Status: Acute (4) Suspected COVID-19 virus infection Status: Acute CONDITION ON DISCHARGE: Stable CODE STATUS: Code Status: Full USP: SNF STAY <30 DAYS: Yes HOSPICE: HOSPICE: No HOSPICE EVAL & TREAT: No LTAC: ADMIT TO LTAC: No POST DISCHARGE ORDERS: ACTIVITY ORDERS: Bedrest today DIET AFTER DISCHARGE: Cardiac TREATMENT/EQUIPMENT ORDERS: Physical Therapy For: Evalulation/Treatment Occupational Therapy For: Evaluation/Treatment Speech Language Pathology For: Evaluation/Treatment DISCHARGE MEDICATIONS: Home Meds Reported Medications Acetaminophen (TYLENOL) 325 Mg Tablet, 2 TAB PEG PRN Q8HRS PRN for PAIN, #30 TAB 7/2/20 Trazodone Hcl (TRAZODONE HCL) 50 Mg Tablet, 1 TAB PEG QHS for insomnia, #30 TAB 1 Refill 7/20 Sertraline Hcl (ZOLOFT) 50 Mg Tablet, 1 TAB PEG DAILY for depression, #30 TAB 2 Refills 20 Calcium Carbonate/Vitamin D3 (CALCIUM 500 + VIT D 200 TABLET) 1 Each Tablet, 1 TAB PEG BID for supplement for 30 Days, #60 TAB 0 Refills 20 Esomeprazole Magnesium (NEXIUM CAPSULE) 40 Mg Capsule.dr, 1 CAP PO DAILY for gerd, #30 CAP 5 Refills 7/220 Metformin Hcl (METFORMIN HCL) 500 Mg Tablet, 500 MG PEG DAILY for ANTI-DIABETIC, TAB 0 Refills 7/2/20 Gabapentin (GABAPENTIN) 600 Mg Tablet, 100 MG PEG HS for NEUROGENIC PAIN, TAB 7/2/20 Atorvastatin Calcium (ATORVASTATIN CALCIUM) 40 Mg Tablet, 40 MG PEG HS for FOR CHOLESTEROL, #30 TAB 0 Refills 20 Aspirin (Children's Aspirin) 81 Mg Tab.chew, 81 MG PEG DAILY for cva, TAB.CHEW /2/20 KONSTANTIN MOSS III DO Nov 05, 2019 12:11
--- NOTE | 2019-11-05 12:24 | NUR ---
ANKUSH following. Reviewed chart and spoke with RN. Pt resides in LTC at [facility]. ANKUSH coordinated care with [facility], , (fax). ANKUSH spoke with Dr. Otto to see what will be done for IV abx. Pt may discharge to SNU at [facility] pending Dr. Otto per Dr. Ron. ANKUSH did phone and fax clinicals. ANKUSH to continue following. Addendum: 11/05/19 at 1526 by TAMIR LECHUGA Spoke with Dr. Otto who saw pt and stated that pt is not ready for discharge as additional lab work is needed. ANKUSH to continue following.
--- NOTE | 2019-11-05 14:10 | DS ---
DATE OF DISCHARGE: 11/05/2019 ADMISSION DIAGNOSES: 1. Sepsis. 2. Pneumonia. DISCHARGE DIAGNOSES: 1. Resolving sepsis. 2. Resolving pneumonia. 3. Resolving respiratory failure. 4. History of stroke with post-stroke syndrome. 5. Aphasia. 6. Stage 2 pressure ulcer on the coccyx present on admission. 7. Hypernatremia. 8. Neuropathy. 9. Alzheimer's. CONSULTS: 1. Infectious Disease. 2. Pulmonary Medicine. HOSPITAL COURSE: The patient is a pleasant elderly male who presented with multifactorial respiratory failure. He was admitted. We gave him IV antibiotics. We ruled out COVID-19. The above consults were obtained. Today, I saw him and examined him. He says his baseline heart tones are normal. Lungs are more clear. He is getting PEG feeds. We plan to discharge to intermediate if okay with the subspecialist and if we can get him changed over to p.o. antibiotics. DISPOSITION: residential facility. ACTIVITY: As tolerated. DIET: PEG feeds. MEDICATIONS: Please see the MRAD. TOTAL TIME: 32 minutes. KONSTANTIN MOSS DO DR: MIRIAN/maribell JOB#: [id number] / [id number]
[2019-11-05 14:51] VITALS: BP 133/78
--- NOTE | 2019-11-05 15:46 | EKG ---
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
[2019-11-05 19:00] VITALS: BP 120/76
--- NOTE | 2019-11-05 22:50 | PN ---
DATE: 11/05/2019 Of note, [email or web address] is not working properly. Information is very limited. SUBJECTIVE: The patient is sitting upright in bed. He is much more alert today. States he was okay, but no further voicing from there. PHYSICAL EXAMINATION: VITAL SIGNS: He has been afebrile. CONSTITUTIONAL: He is sitting upright in bed. He is alert. I was able to see in his mouth prior to waking him. On arrival, he did have some dry mucus in his mouth. NECK: Supple, no JVD. LUNGS: Clear. CARDIOVASCULAR: S1, S2. ABDOMEN: Soft, nontender, no guarding, no rebound. EXTREMITIES: Thin. PEG tube without complications. NEUROLOGICAL: He is awakened. DIAGNOSTIC DATA: Micro cultures are all negative. He has no recent radiological studies. Last white count was 13.3 on the . IMPRESSION: 1. Sepsis with hypotension, present on admission, is improved. 2. Suspect COVID, was COVID negative. 3. Acute respiratory failure, improved. 4. Leukocytosis, better. 5. PENICILLIN ALLERGY, reactions unknown. 6. Stage 2 coccyx pressure wound. 7. Transaminitis, improved. 8. History of cerebrovascular accident with hemiplegia. 9. Parkinson's disease. 10. Alzheimer's. 11. Hypernatremia. RECOMMENDATIONS: We will obtain laboratory values in the morning. Electrolytes per primary. Discontinue his antimicrobials. Discontinue the meropenem and we will monitor his response. ROCIO LOMBARDI MD DR: MEREDITH/maribell JOB#: [id number] / [id number] VIJAY
[2019-11-05 23:00] VITALS: BP 136/83
[2019-11-05] MEDS: ATORVASTATIN CALCIUM 40 MG TABLET. PEG SCH (23:11)
[2019-11-05] MEDS: traZODone 50 MG TABLET. PEG SCH (23:12)
[2019-11-05] MEDS: ENOXAPARIN 30 MG/0.3 ML SYRINGE. SQ SCH (23:12)
[2019-11-06 03:00] VITALS: BP 151/72
[2019-11-06] MEDS: IV 1/2 NORMAL SALINE 1,000 ML IV SCH ×2 (04:18→17:12)
[2019-11-06 07:55] VITALS: BP 134/78
[2019-11-06] MEDS: LANSOPRAZOLE 30 MG TAB.RAP.DR PEG SCH (08:22)
[2019-11-06] MEDS: ASPIRIN CHEWABLE 81 MG TABLET. PEG SCH (08:22)
[2019-11-06] MEDS: CALCIUM CARB/VIT D3 500/200 TABLET. PEG SCH ×2 (08:22→22:06)
[2019-11-06] MEDS: SERTRALINE 50 MG TABLET. PEG SCH (08:22)
--- NOTE | 2019-11-06 08:49 | PDOC ---
PULMONARY PROGRESS NOTES Subjective Patient more awake today, answers yes Vitals Vital Signs Date Time Temp Pulse Resp B/P (MAP) Pulse Ox O2 Delivery O2 Flow Rate FiO2 11/06/19 07:55 97.7 80 16 134/78 (96) 95 Room Air 97.7 11/05/19 20:00 2.0 Comments unable to obtain non-verbal General: Alert Cardiovascular: S1, S2 Abdomen: Soft, Non-tender Neuro Exam: Alert Extremities: No Edema Skin: Warm Labs Laboratory Tests Test 11/04/19 11:43 11/04/19 18:22 11/05/19 00:05 11/05/19 06:19 Glucose (Fingerstick) 122 mg/dL (70-99) 109 mg/dL (70-99) 148 mg/dL (70-99) 102 mg/dL (70-99) Test 11/05/19 15:32 11/06/19 01:21 11/06/19 06:36 Glucose (Fingerstick) 100 mg/dL (70-99) 131 mg/dL (70-99) 122 mg/dL (70-99) Laboratory Tests Test 11/05/19 15:32 11/06/19 01:21 11/06/19 06:36 Glucose (Fingerstick) 100 mg/dL (70-99) 131 mg/dL (70-99) 122 mg/dL (70-99) Medications Active Scripts Medications Dose Route/Sig Max Daily Dose Days Date Category Tylenol (Acetaminophen) 325 Mg Tablet 2 Tab PEG PRN Q8HRS PRN 11/01/19 Reported Trazodone Hcl 50 Mg Tablet 1 Tab PEG QHS 11/01/19 Reported Zoloft (Sertraline Hcl) 50 Mg Tablet 1 Tab PEG DAILY 11/01/19 Reported Calcium 500 + Vit D 200 Tablet (Calcium Carbonate/Vitamin D3) 1 Each Tablet 1 Tab PEG BID 30 11/01/19 Reported Nexium Capsule (Esomeprazole Magnesium) 40 Mg Capsule. 1 Cap PO DAILY 11/01/19 Reported Metformin Hcl 500 Mg Tablet 500 Mg PEG DAILY 11/01/19 Reported Gabapentin 600 Mg Tablet 100 Mg PEG HS 11/01/19 Reported Atorvastatin Calcium 40 Mg Tablet 40 Mg PEG HS 11/01/19 Reported Children's Aspirin (Aspirin) 81 Mg Tab.chew 81 Mg PEG DAILY 11/01/19 Reported Comments IMPRESSION: Bilateral lung infiltrates or pulmonary edema more prominent within the lower lung zones. Minimal right-sided pleural effusion. Given normal heart size, the lung infiltrates may represent pneumonia or aspiration pneumonitis. Impression . IMPRESSION: 1. Acute hypoxemic respiratory failure, multifactorial in nature.--improved 2. Septic shock.--resolved 3. LVIF-DQMXQ-8 negative. 4. Leukocytosis. 5. PENICILLIN ALLERGY. 6. Stage 2 pressure wound on coccyx, present upon admission. 7. Elevated troponin. 8. Deranged electrolytes, hypernatremia and hypokalemia. 9. Neurogenic dysphagia, status post PEG tube placement. 10. History of cerebrovascular accident with hemiplegia. 11. Parkinsonism. 12. Alzheimer's. 13. Metabolic toxic encephalopathy, improved Plan . Antibiotics per FATOU, isha to transfer RAGHU WADSWORTH MD Nov 06, 2019 08:49
[2019-11-06 09:13] LABS: BASO % 0 % (0-3); EOS # 0.2 x10^3/uL (0.0-0.7); EOS % 2 % (0-3); HEMATOCRIT 30.4 % (39.0-53.0); HEMOGLOBIN 9.8 g/dL (13.0-17.5); LYMPH # 1.8 x10^3/uL (1.0-4.8); LYMPH % 24 % (24-48); MEAN CORPUSCULAR HEMOGLOBIN 29 pg (25-35); MEAN CORPUSCULAR HGB CONC 32 g/dL (31-37); MEAN CORPUSCULAR VOLUME 90 fL (79-100); MONO # 0.2 x10^3/uL (0.0-1.1); MONO % 3 % (0-9); NEUT # 5.2 x10^3/uL (1.8-7.7); NEUT % 70 % (31-73); PLATELET COUNT 217 x10^3/uL (140-400); RED BLOOD COUNT 3.36 x10^6/uL (4.30-5.70); RED CELL DISTRIBUTION WIDTH 16.3 % (11.5-14.5); WHITE BLOOD COUNT 7.4 x10^3/uL (4.0-11.0)
[2019-11-06 09:22] LABS: CALCIUM 7.6 mg/dL (8.5-10.1); CREATININE 0.7 mg/dL (0.7-1.3); GFR 136.5; POTASSIUM 3.8 mmol/L (3.5-5.1)
--- NOTE | 2019-11-06 09:48 | PDOC ---
Infectious Disease Note Subjective Subjective Very alert and mumbling No fevers last 48 hours SHAHRIAR BESS unable to obtain Vital Sign Vital Signs Vital Signs Date Time Temp Pulse Resp B/P (MAP) Pulse Ox O2 Delivery O2 Flow Rate FiO2 11/06/19 07:55 97.7 80 16 134/78 (96) 95 Room Air 97.7 11/05/19 20:00 2.0 Physical Exam PHYSICAL EXAM GENERAL: Propped up in bed, Very alert. mumbling answers appears comfortable. HEENT: Pupils equally round, normal conjunctivae. He refuses to open his mouth for exam. NECK: Supple. LUNGS: Clear to auscultation. No accessory muscle use. HEART: S1 and S2. ABDOMEN: Nondistended, soft, with bowel sounds present. + PEG tube. No grimace or guarding to palpation : Clark in place (10/31) EXTREMITIES: No gross edema or cyanosis. SKIN: Warm to touch. No signs of rash. A small sacrococcygeal pressure wound, stage 2 without signs of infection, as of 10/31. NEUROLOGIC: He does not respond to questions or follow commands. PIV looks ok Labs Lab Laboratory Tests Test 11/05/19 15:32 11/06/19 01:21 11/06/19 06:36 11/06/19 08:35 Glucose (Fingerstick) 100 mg/dL (70-99) 131 mg/dL (70-99) 122 mg/dL (70-99) White Blood Count 7.4 x10^3/uL (4.0-11.0) Red Blood Count 3.36 x10^6/uL (4.30-5.70) Hemoglobin 9.8 g/dL (13.0-17.5) Hematocrit 30.4 % (39.0-53.0) Mean Corpuscular Volume 90 fL (79-100) Mean Corpuscular Hemoglobin 29 pg (25-35) Mean Corpuscular Hemoglobin Concent 32 g/dL (31-37) Red Cell Distribution Width 16.3 % (11.5-14.5) Platelet Count 217 x10^3/uL (140-400) Neutrophils (%) (Auto) 70 % (31-73) Lymphocytes (%) (Auto) 24 % (24-48) Monocytes (%) (Auto) 3 % (0-9) Eosinophils (%) (Auto) 2 % (0-3) Basophils (%) (Auto) 0 % (0-3) Neutrophils # (Auto) 5.2 x10^3/uL (1.8-7.7) Lymphocytes # (Auto) 1.8 x10^3/uL (1.0-4.8) Monocytes # (Auto) 0.2 x10^3/uL (0.0-1.1) Eosinophils # (Auto) 0.2 x10^3/uL (0.0-0.7) Basophils # (Auto) 0.0 x10^3/uL (0.0-0.2) Sodium Level 143 mmol/L (136-145) Potassium Level 3.8 mmol/L (3.5-5.1) Chloride Level 108 mmol/L (98-107) Carbon Dioxide Level 32 mmol/L (21-32) Anion Gap 3 (6-14) Blood Urea Nitrogen 17 mg/dL (8-26) Creatinine 0.7 mg/dL (0.7-1.3) Estimated GFR (Cockcroft-Gault) 136.5 Glucose Level 146 mg/dL (70-99) Calcium Level 7.6 mg/dL (8.5-10.1) Micro Microbiology 11/01/19 Blood Culture - Preliminary, Resulted NO GROWTH AFTER 4 DAYS Objective Assessment IMPRESSION: 1. Sepsis with hypotension, present on admission, is improved. 2. Suspect COVID, was COVID negative. 3. Acute respiratory failure, improved. 4. Leukocytosis, better. 5. PENICILLIN ALLERGY, reactions unknown. 6. Stage 2 coccyx pressure wound. 7. Transaminitis, improved. 8. History of cerebrovascular accident with hemiplegia. 9. Parkinson's disease. 10. Alzheimer's. 11. Hypernatremia. Plan Plan of Care Treat with Zyvox until 11/07 Discontinued the meropenem 11/04 Ok to transfer ID to sign off ROCIO LOMBARDI MD Nov 06, 2019 09:48
[2019-11-06 11:26] VITALS: BP 162/82
--- NOTE | 2019-11-06 11:49 | PDOC ---
[facility] PROGRESS NOTE Chief Complaint Chief Complaint acute hypoxic Respiratory failure, rule out COVID-19. s/p stroke with post CVA syndrome, aphasia sepsis, Stage 2 pressure wound on coccyx, present upon admission. hypernatremia from dehydration, acute vasomotor nephropathy Alzheimer's. History of Present Illness History of Present Illness 11/06/2019 Patient seen and examined He is on PEG feeds at 55 cc an hour Discussed with RN Chart reviewed The plan is IV antibiotics for 2 more days and then he will go to senior living on 11/04/2019 Patient seen and examined He has heavy respirations On IV Glucerna at 55 cc an hour Has IV Zyvox pain as well Chart reviewed Discussed with RN He appears quite ill 11/03/2019 Patient seen and examined Chart reviewed Discussed with RN Vitals/I&O Vitals/I&O: Vital Signs Date Time Temp Pulse Resp B/P (MAP) Pulse Ox O2 Delivery O2 Flow Rate FiO2 11/06/19 11:26 96.9 81 17 162/82 (108) 96 Room Air 96.9 11/06/19 08:00 2.0 I & O 11/05/19 11/05/19 11/06/19 15:00 23:00 07:00 Intake Total 1245 ml Output Total 950 ml 1000 ml Balance 1245 ml -950 ml -1000 ml Physical Exam Physical Exam: GENERAL: Propped up in bed, Very alert. mumbling answers appears comfortable. HEENT: Pupils equally round, normal conjunctivae. He refuses to open his mouth for exam. NECK: Supple. LUNGS: Clear to auscultation. No accessory muscle use. HEART: S1 and S2. ABDOMEN: Nondistended, soft, with bowel sounds present. + PEG tube. No grimace or guarding to palpation : Clark in place (10/31) EXTREMITIES: No gross edema or cyanosis. SKIN: Warm to touch. No signs of rash. A small sacrococcygeal pressure wound, stage 2 without signs of infection, as of 10/31. NEUROLOGIC: He does not respond to questions or follow commands. PIV looks ok General: Alert, Cooperative Extremities: No clubbing Skin: No rashes Labs Labs: Laboratory Tests Test 11/05/19 15:32 11/06/19 01:21 11/06/19 06:36 11/06/19 08:35 Glucose (Fingerstick) 100 mg/dL (70-99) 131 mg/dL (70-99) 122 mg/dL (70-99) White Blood Count 7.4 x10^3/uL (4.0-11.0) Red Blood Count 3.36 x10^6/uL (4.30-5.70) Hemoglobin 9.8 g/dL (13.0-17.5) Hematocrit 30.4 % (39.0-53.0) Mean Corpuscular Volume 90 fL (79-100) Mean Corpuscular Hemoglobin 29 pg (25-35) Mean Corpuscular Hemoglobin Concent 32 g/dL (31-37) Red Cell Distribution Width 16.3 % (11.5-14.5) Platelet Count 217 x10^3/uL (140-400) Neutrophils (%) (Auto) 70 % (31-73) Lymphocytes (%) (Auto) 24 % (24-48) Monocytes (%) (Auto) 3 % (0-9) Eosinophils (%) (Auto) 2 % (0-3) Basophils (%) (Auto) 0 % (0-3) Neutrophils # (Auto) 5.2 x10^3/uL (1.8-7.7) Lymphocytes # (Auto) 1.8 x10^3/uL (1.0-4.8) Monocytes # (Auto) 0.2 x10^3/uL (0.0-1.1) Eosinophils # (Auto) 0.2 x10^3/uL (0.0-0.7) Basophils # (Auto) 0.0 x10^3/uL (0.0-0.2) Sodium Level 143 mmol/L (136-145) Potassium Level 3.8 mmol/L (3.5-5.1) Chloride Level 108 mmol/L (98-107) Carbon Dioxide Level 32 mmol/L (21-32) Anion Gap 3 (6-14) Blood Urea Nitrogen 17 mg/dL (8-26) Creatinine 0.7 mg/dL (0.7-1.3) Estimated GFR (Cockcroft-Gault) 136.5 Glucose Level 146 mg/dL (70-99) Calcium Level 7.6 mg/dL (8.5-10.1) Assessment and Plan Assessmemt and Plan Problems Medical Problems: (1) Dehydration Status: Acute (2) Pneumonia Status: Acute (3) Severe sepsis Status: Acute (4) Suspected COVID-19 virus infection Status: Acute Sepsis with hypotension, POA. improving Suspected COVID-19 infection vs aspiration. Covid-19 negative, 7/ Acute respiratory failure, O2 5L Leukocytosis - better Penicillin allergy, reaction unknown Coccyx pressure wound, stage II, POA Transaminitis. LDH 215, lipase 172 Elevated troponin Hypernatremia Oropharygeal dysphagia maintained on tube feedings h/o CVA with hemiplegia Parkinson's disease Alzheimer's disease detention resident Plan Plan of Care Continue Zyvox through November 07 then senior living One time dose of Levaquin in ER, 10/31 One time dose dapto, 10/31 CRP 214.5 BC neg to date Maintain aspiration precautions Local wound care and offloading as directed Comment Review of Relevant I have reviewed the following items cele (where applicable) has been applied. Justicifation of Admission Dx: Justifications for Admission: Justification of Admission Dx: Yes Sepsis: Hemodynamic Instability KONSTANTIN MOSS III DO Nov 06, 2019 11:49
--- NOTE | 2019-11-06 14:26 | NUR ---
SW following. Spoke with RN and reviewed chart. Coordinated care with Dr. Otto. Pt will likely discharge in the next few days to [facility] when stable. Pt positive bacteremia. Pt on PEG. Pt on room air. SW to continue following.
[2019-11-06 15:11] VITALS: BP 138/69
[2019-11-06 19:58] VITALS: BP 161/89
[2019-11-06] MEDS: ATORVASTATIN CALCIUM 40 MG TABLET. PEG SCH (21:00)
[2019-11-06] MEDS: ENOXAPARIN 30 MG/0.3 ML SYRINGE. SQ SCH (22:06)
[2019-11-06] MEDS: traZODone 50 MG TABLET. PEG SCH (22:06)
[2019-11-06 23:35] VITALS: BP 127/71
[2019-11-07] MEDS: IV 1/2 NORMAL SALINE 1,000 ML IV SCH (05:58)
[2019-11-07 07:47] VITALS: BP 134/77
--- NOTE | 2019-11-07 08:40 | PDOC ---
PULMONARY PROGRESS NOTES Subjective Patient more awake today, answers yes Vitals Vital Signs Date Time Temp Pulse Resp B/P (MAP) Pulse Ox O2 Delivery O2 Flow Rate FiO2 11/07/19 07:47 96.6 86 17 134/77 (96) 98 Room Air 96.6 11/06/19 20:00 2.0 Comments unable to obtain non-verbal General: Alert Cardiovascular: S1, S2 Abdomen: Soft, Non-tender Neuro Exam: Alert Extremities: No Edema Skin: Warm Labs Laboratory Tests Test 11/05/19 15:32 11/06/19 01:21 11/06/19 06:36 11/06/19 08:35 Glucose (Fingerstick) 100 mg/dL (70-99) 131 mg/dL (70-99) 122 mg/dL (70-99) White Blood Count 7.4 x10^3/uL (4.0-11.0) Red Blood Count 3.36 x10^6/uL (4.30-5.70) Hemoglobin 9.8 g/dL (13.0-17.5) Hematocrit 30.4 % (39.0-53.0) Mean Corpuscular Volume 90 fL (79-100) Mean Corpuscular Hemoglobin 29 pg (25-35) Mean Corpuscular Hemoglobin Concent 32 g/dL (31-37) Red Cell Distribution Width 16.3 % (11.5-14.5) Platelet Count 217 x10^3/uL (140-400) Neutrophils (%) (Auto) 70 % (31-73) Lymphocytes (%) (Auto) 24 % (24-48) Monocytes (%) (Auto) 3 % (0-9) Eosinophils (%) (Auto) 2 % (0-3) Basophils (%) (Auto) 0 % (0-3) Neutrophils # (Auto) 5.2 x10^3/uL (1.8-7.7) Lymphocytes # (Auto) 1.8 x10^3/uL (1.0-4.8) Monocytes # (Auto) 0.2 x10^3/uL (0.0-1.1) Eosinophils # (Auto) 0.2 x10^3/uL (0.0-0.7) Basophils # (Auto) 0.0 x10^3/uL (0.0-0.2) Sodium Level 143 mmol/L (136-145) Potassium Level 3.8 mmol/L (3.5-5.1) Chloride Level 108 mmol/L (98-107) Carbon Dioxide Level 32 mmol/L (21-32) Anion Gap 3 (6-14) Blood Urea Nitrogen 17 mg/dL (8-26) Creatinine 0.7 mg/dL (0.7-1.3) Estimated GFR (Cockcroft-Gault) 136.5 Glucose Level 146 mg/dL (70-99) Calcium Level 7.6 mg/dL (8.5-10.1) Test 11/06/19 12:20 11/06/19 18:44 11/07/19 05:55 Glucose (Fingerstick) 129 mg/dL (70-99) 101 mg/dL (70-99) 115 mg/dL (70-99) Laboratory Tests Test 11/06/19 12:20 11/06/19 18:44 11/07/19 05:55 Glucose (Fingerstick) 129 mg/dL (70-99) 101 mg/dL (70-99) 115 mg/dL (70-99) Medications Active Scripts Medications Dose Route/Sig Max Daily Dose Days Date Category Tylenol (Acetaminophen) 325 Mg Tablet 2 Tab PEG PRN Q8HRS PRN 11/01/19 Reported Trazodone Hcl 50 Mg Tablet 1 Tab PEG QHS 11/01/19 Reported Zoloft (Sertraline Hcl) 50 Mg Tablet 1 Tab PEG DAILY 11/01/19 Reported Calcium 500 + Vit D 200 Tablet (Calcium Carbonate/Vitamin D3) 1 Each Tablet 1 Tab PEG BID 30 11/01/19 Reported Nexium Capsule (Esomeprazole Magnesium) 40 Mg Capsule.dr 1 Cap PO DAILY 11/01/19 Reported Metformin Hcl 500 Mg Tablet 500 Mg PEG DAILY 11/01/19 Reported Gabapentin 600 Mg Tablet 100 Mg PEG HS 11/01/19 Reported Atorvastatin Calcium 40 Mg Tablet 40 Mg PEG HS 11/01/19 Reported Children's Aspirin (Aspirin) 81 Mg Tab.chew 81 Mg PEG DAILY 11/01/19 Reported Comments IMPRESSION: Bilateral lung infiltrates or pulmonary edema more prominent within the lower lung zones. Minimal right-sided pleural effusion. Given normal heart size, the lung infiltrates may represent pneumonia or aspiration pneumonitis. Impression . IMPRESSION: 1. Acute hypoxemic respiratory failure, multifactorial in nature.--improved 2. Septic shock.--resolved 3. [id number]-6 negative. 4. Leukocytosis. 5. PENICILLIN ALLERGY. 6. Stage 2 pressure wound on coccyx, present upon admission. 7. Elevated troponin. 8. Deranged electrolytes, hypernatremia and hypokalemia. 9. Neurogenic dysphagia, status post PEG tube placement. 10. History of cerebrovascular accident with hemiplegia. 11. Parkinsonism. 12. Alzheimer's. 13. Metabolic toxic encephalopathy, improved Plan . Antibiotics per ID, okay to transfer RAGHU WADSWORTH MD Nov 07, 2019 08:40
--- NOTE | 2019-11-07 08:58 | PDOC ---
Infectious Disease Note Subjective Subjective Very alert and mumbling No fevers last 48 hours Vital Sign Vital Signs Vital Signs Date Time Temp Pulse Resp B/P (MAP) Pulse Ox O2 Delivery O2 Flow Rate FiO2 11/07/19 07:47 96.6 86 17 134/77 (96) 98 Room Air 96.6 11/06/19 20:00 2.0 Physical Exam PHYSICAL EXAM GENERAL: Propped up in bed, Very alert after awakening. mumbling answers appears comfortable. HEENT: Pupils equally round, normal conjunctivae. He refuses to open his mouth for exam. NECK: Supple. LUNGS: Clear to auscultation. No accessory muscle use. HEART: S1 and S2. ABDOMEN: Nondistended, soft, with bowel sounds present. + PEG tube. No grimace or guarding to palpation : Clark in place (10/31) EXTREMITIES: No gross edema or cyanosis. SKIN: Warm to touch. No signs of rash. A small sacrococcygeal pressure wound, stage 2 without signs of infection, as of 10/31. NEUROLOGIC: He does not respond to questions or follow commands. Very alert and mumbles to questions PIV looks ok Labs Lab Laboratory Tests Test 11/06/19 12:20 11/06/19 18:44 11/07/19 05:55 Glucose (Fingerstick) 129 mg/dL (70-99) 101 mg/dL (70-99) 115 mg/dL (70-99) Micro Microbiology 11/01/19 Blood Culture - Preliminary, Resulted NO GROWTH AFTER 4 DAYS Objective Assessment IMPRESSION: 1. Sepsis with hypotension, present on admission, is improved. 2. Suspect COVID, was COVID negative. 3. Acute respiratory failure, improved. 4. Leukocytosis, better. 5. PENICILLIN ALLERGY, reactions unknown. 6. Stage 2 coccyx pressure wound. 7. Transaminitis, improved. 8. History of cerebrovascular accident with hemiplegia. 9. Parkinson's disease. 10. Alzheimer's. 11. Hypernatremia. Plan Plan of Care Treat with Zyvox until 11/07 change to Po Discontinued the meropenem 11/04 Ok to transfer ID to sign off ROCIO LOMBARDI MD Nov 07, 2019 08:58
[2019-11-07] MEDS ORDERED: LINEZOLID 600 MG TABLET PO SCH (09:00)
[2019-11-07] MEDS: CALCIUM CARB/VIT D3 500/200 TABLET. PEG SCH (09:26)
[2019-11-07] MEDS: SERTRALINE 50 MG TABLET. PEG SCH (09:26)
[2019-11-07] MEDS: ASPIRIN CHEWABLE 81 MG TABLET. PEG SCH (09:26)
[2019-11-07] MEDS: LANSOPRAZOLE 30 MG TAB.RAP.DR PEG SCH (09:26)
[2019-11-07 11:27] VITALS: BP 131/77
--- NOTE | 2019-11-07 11:36 | NUR ---
SW following. Spoke with RN and reviewed chart. Dr. Otto stated pt moved to oral abx and can discharge per ID. Spoke with Dr. Ron and pt will discharge back to [facility], , (fax) today. Spoke with Berry from [facility] and stretcher transport with 2l 02 scheduled for 1300. SW awaiting final discharge orders to fax. SW updated packet with recent clinical information to be sent with pt at discharge. RN to call report. Addendum: 11/07/19 at 1214 by TAMIR LECHUGA Discharge orders phoned and faxed to [facility], , (fax). No further SW needs at this time.
--- NOTE | 2019-11-07 11:56 | SNU/HH DC ---
DISCHARGE ORDERS DISCHARGE INFORMATION: FINAL DIAGNOSIS Problems Medical Problems: (1) Dehydration Status: Acute (2) Pneumonia Status: Acute (3) Severe sepsis Status: Acute (4) Suspected COVID-19 virus infection Status: Acute CONDITION ON DISCHARGE: Stable CODE STATUS: Code Status: Full RETIREMENT: SNF STAY <30 DAYS: Yes HOSPICE: HOSPICE: No HOSPICE EVAL & TREAT: No LTAC: ADMIT TO LTAC: No POST DISCHARGE ORDERS: ACTIVITY ORDERS: Bedrest today DIET AFTER DISCHARGE: Cardiac TREATMENT/EQUIPMENT ORDERS: Physical Therapy For: Evalulation/Treatment Occupational Therapy For: Evaluation/Treatment Speech Language Pathology For: Evaluation/Treatment DISCHARGE MEDICATIONS: Home Meds Reported Medications Acetaminophen (TYLENOL) 325 Mg Tablet, 2 TAB PEG PRN Q8HRS PRN for PAIN, #30 TAB 7/2/20 Trazodone Hcl (TRAZODONE HCL) 50 Mg Tablet, 1 TAB PEG QHS for insomnia, #30 TAB 1 Refill 7//20 Sertraline Hcl (ZOLOFT) 50 Mg Tablet, 1 TAB PEG DAILY for depression, #30 TAB 2 Refills /20 Calcium Carbonate/Vitamin D3 (CALCIUM 500 + VIT D 200 TABLET) 1 Each Tablet, 1 TAB PEG BID for supplement for 30 Days, #60 TAB 0 Refills //20 Esomeprazole Magnesium (NEXIUM CAPSULE) 40 Mg Capsule.dr, 1 CAP PO DAILY for gerd, #30 CAP 5 Refills 7/2/20 Metformin Hcl (METFORMIN HCL) 500 Mg Tablet, 500 MG PEG DAILY for ANTI-DIABETIC, TAB 0 Refills 7/2/20 Gabapentin (GABAPENTIN) 600 Mg Tablet, 100 MG PEG HS for NEUROGENIC PAIN, TAB 7/2/20 Atorvastatin Calcium (ATORVASTATIN CALCIUM) 40 Mg Tablet, 40 MG PEG HS for FOR CHOLESTEROL, #30 TAB 0 Refills 2/20 Aspirin (Children's Aspirin) 81 Mg Tab.chew, 81 MG PEG DAILY for cva, TAB.CHEW /2/20 KONSTANTIN MOSS III DO Nov 07, 2019 11:56
--- NOTE | 2019-11-07 13:21 | NUR ---
Discharge Note: JACQUELYN WARE Discharge instructions and discharge home medications reviewed with ANGELA Kerr at [facility] and a copy given. All questions have been answered and understanding verbalized. Discontinued lines and drains: Peripheral IV intact. [facility]
== END 2019-11-07 13:22 | DRG 871 ==
LOC: ER 11:04 → 1 WEST ICU 14:34 → 6 SOUTH 11-02 17:15
PROVIDERS: ADMIT Internal Medicine; ATTEND Internal Medicine
DX: A41.9 Sepsis, unspecified organism (principal); J96.01 Acute respiratory failure with hypoxia; G92 Toxic encephalopathy; J18.9 Pneumonia, unspecified organism; N17.0 Acute kidney failure with tubular necrosis; R65.21 Severe sepsis with septic shock; E87.0 Hyperosmolality and hypernatremia; I69.351 Hemiplegia and hemiparesis following cerebral infarction affecting right dominant side; J81.1 Chronic pulmonary edema; R47.01 Aphasia; E03.9 Hypothyroidism, unspecified; E11.9 Type 2 diabetes mellitus without complications; E86.0 Dehydration; E87.6 Hypokalemia; F02.80 Dementia in other diseases classified elsewhere, unspecified severity, without behavioral disturbance, psychotic disturbance, mood disturbance, and anxiety; F31.9 Bipolar disorder, unspecified; G20 Parkinson's disease; G30.9 Alzheimer's disease, unspecified; G62.9 Polyneuropathy, unspecified; L89.152 Pressure ulcer of sacral region, stage 2; M06.9 Rheumatoid arthritis, unspecified; R13.12 Dysphagia, oropharyngeal phase; R13.19 Other dysphagia; Z20.828 Contact with and (suspected) exposure to other viral communicable diseases; Z83.3 Family history of diabetes mellitus; Z88.0 Allergy status to penicillin; Z93.1 Gastrostomy status; F41.9 Anxiety disorder, unspecified
CPT/HCPCS: 36415; 71045; 80048; 80053; 81001; 82805; 82962; 83605; 83615; 83690; 84484; 85007; 85025; 85379; 85610; 85730; 86140; 87040; 93005; 96361; 96365; 96366; 99291; J0878; J1650; J1956; J2020; J2185; J3490; J7030; P9612; G0378; U0003-CS

== ENCOUNTER 2019-11-08 12:07 | Inpatient (IN) | payer MEDICARE, MEDICAID ==
[~2019-11-08] VITALS: Ht 165.1 cm; Wt 45.0 kg
[~2019-11-08 12:07] MED LIST: ACET325T9 PEG; ASPI81TA59 PEG; ATOR40TA59 PEG; CALC-157 PEG; EPINEPHrine SYRINGE 1 MG/10 ML SYRINGE ONE; ESOM40CA PO; GABA600T7 PEG; METF500T16 PEG; SERT50TA PEG; TRAZ-118 PEG
[2019-11-08] MEDS ORDERED: IV NORMAL SALINE 1000ML BAG 1,000 ML IV ONE ×2 (12:20→13:00)
[2019-11-08 12:36] LABS: BASE EXCESS ABG -15 mmol/L (-3-3); HCO3 ABG 15 mmol/L (21-28); PCO2 ABG 58 mmHg (35-46); PO2 ABG 276 mmHg (65-108); SAT O2 ABG 99 % (92-99)
[2019-11-08 12:40] LABS: FIO2 ABG 100% BAGGING
[2019-11-08] MEDS ORDERED: MIDAZOLAM HCL/PF 5 MG/5 ML VIAL. ONE (12:40)
--- NOTE | 2019-11-08 12:45 | EKG ---
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
[2019-11-08 13:00] LABS: BILIRUBIN,URINE NEGATIVE (NEG); CLARITY,URINE CLEAR; COLOR,URINE YELLOW; NITRITE,URINE NEGATIVE (NEG); PH,URINE 7.5 (<5.0-8.0); PROTEIN,URINE 30 mg/dL (NEG-TRACE)
[2019-11-08] MEDS ORDERED: MIDAZOLAM HCL/PF 5 MG/5 ML VIAL. IV ONE (13:00)
[2019-11-08 13:01] LABS: CALCIUM 8.2 mg/dL (8.5-10.1); CREATININE 1.1 mg/dL (0.7-1.3); POTASSIUM 4.2 mmol/L (3.5-5.1)
[2019-11-08 13:07] LABS: ALBUMIN 1.4 g/dL (3.4-5.0); ALBUMIN/GLOBULIN RATIO 0.2 (1.0-1.7); MAGNESIUM 2.7 mg/dL (1.8-2.4); TOTAL BILIRUBIN 0.2 mg/dL (0.2-1.0); TOTAL PROTEIN 7.2 g/dL (6.4-8.2)
--- NOTE | 2019-11-08 13:07 | RAD ---
CHEST AP ONLY History: Reason: chest pain/POST INTUBATION / Spl. Instructions: / History: Comparison: November 01, 2019 Findings: Interval intubation with endotracheal tube tip 9.5 cm above the nadege. Enteric tube with tip below the diaphragm beyond the image. Increased patchy left basilar opacities. Patchy right basilar opacities, unchanged. No pleural effusion. Linear density along the left lateral lung likely related to external artifact as lung markings are seen peripherally. No definite pneumothorax. Impression: 1. Interval intubation and placement of enteric tube. 2. Patchy bibasilar opacities, increased on the left. Electronically signed by: Jose A Martinez DO (11/08/2019 1:04 PM) [id number]
--- NOTE | 2019-11-08 13:09 | PHYS DOC ---
Past Medical History Past Medical History: Unknown Additional Past Surgical Histo: UNK Smoking Status: Unknown if ever smoked Alcohol Use: None General Adult EDM: Chief Complaint: RESP ARREST HPI: HPI: Patient is a 64 year old male who presents with respiratory failure. Patient was discharged from the hospital yesterday with pneumonia. Patient had respiratory distress followed by cardiac arrest. He received 2 doses of epinephrine and compressions prior to arrival. Patient is a full code. He is unable to provide any history Review of Systems: Review of Systems: Unable to obtain due to altered mental status Heart Score: Risk Factors: Risk Factors: DM, Current or recent (<one month) smoker, HTN, HLP, family history of CAD, obesity. Risk Scores: Score 0 - 3: 2.5% MACE over next 6 weeks - Discharge Home Score 4 - 6: 20.3% MACE over next 6 weeks - Admit for Clinical Observation Score 7 - 10: 72.7% MACE over next 6 weeks - Early Invasive Strategies Current Medications: Current Medications Medications (Trade) Dose Ordered Sig/Radha Start Time Stop Time Status Last Admin Dose Admin Midazolam HCl (Versed) 5 mg 1X ONCE 11/08/19 13:00 11/08/19 13:01 DC Allergies: Allergies: Allergies Coded Allergies Type Severity Reaction Last Updated Verified Penicillins Allergy Intermediate 11/01/19 Yes Physical Exam: PE: General: Unresponsive, foaming from mouth and nose, toxic appearing HEENT: Atraumatic, pupils nonreactive, airway patent, moist oral mucosa Neck: Supple, trachea midline Respiratory: Decreased breath sounds bilaterally, apneic, diffuse crackles CV: Tachycardic, no murmur, weak pulses GI: Soft, nondistended, G-tube in place MSK: No obvious deformities Skin: Cool, dry, intact Neuro: GCS 3 Current Patient Data: Labs: Laboratory Tests Test 11/08/19 12:30 O2 Saturation 99 % (92-99) Arterial Blood pH 7.04 (7.35-7.45) *L Arterial Blood pCO2 at Patient Temp 58 mmHg (35-46) H Arterial Blood pO2 at Patient Temp 276 mmHg (65-108) H Arterial Blood HCO3 15 mmol/L (21-28) L Arterial Blood Base Excess -15 mmol/L (-3-3) L FiO2 100% bagging Sodium Level 141 mmol/L (136-145) Potassium Level 4.2 mmol/L (3.5-5.1) Chloride Level 102 mmol/L (98-107) Carbon Dioxide Level 21 mmol/L (21-32) Anion Gap 18 (6-14) H Blood Urea Nitrogen 17 mg/dL (8-26) Creatinine 1.1 mg/dL (0.7-1.3) Estimated GFR (Cockcroft-Gault) 81.0 BUN/Creatinine Ratio 15 (6-20) Glucose Level 346 mg/dL (70-99) H Calcium Level 8.2 mg/dL (8.5-10.1) L Magnesium Level Pending Total Bilirubin Pending Aspartate Amino Transferase (AST) Pending Alanine Aminotransferase (ALT) Pending Alkaline Phosphatase Pending Total Protein Pending Albumin Pending Albumin/Globulin Ratio Pending Lipase Pending Laboratory Tests 11/08/19 12:30 Vital Signs: Vital Signs Date Time Temp Pulse Resp B/P (MAP) Pulse Ox O2 Delivery O2 Flow Rate FiO2 11/08/19 12:39 100 Ventilator EKG: EKG: Sinus tachycardia [] Radiology/Procedures: Radiology/Procedures: [] Impression: Respiratory failure Course & Med Decision Making: Course & Med Decision Making Pertinent Labs and Imaging studies reviewed. (See chart for details) Patient is 64-year-old male who presents to the emergency room post cardiac code. Patient is a full code at this time. He is in respiratory failure. Initial pulse ox was 10%. Ricardo airway was removed and ET tube was placed. Patient has a large amount of secretions at this time. He was given fluids and antibiotics. Work-up was ordered including a sepsis work-up. Troponin was not ordered as patient received compressions. He does not have signs of STEMI on his EKG. I have discussed his case with his family. At this time they would like terminal extubation and hospice care. Patient was extubated here in the emergency room and will be admitted to inpatient hospice. Dragon Disclaimer: Dragon Disclaimer: This electronic medical record was generated, in whole or in part, using a voice recognition dictation system. Departure Departure Impression: Primary Impression: Respiratory arrest Additional Impressions: Sepsis Pneumonia Disposition: ADMITTED INPATIENT Condition: GRAVE Referrals: BRANDEN SARKAR MD (PCP) Justicifation of Admission Dx: Justifications for Admission: Justification of Admission Dx: Yes Sepsis: Hemodynamic Instability COVID-19 Assessment: COVID-19 Patient Risks: Age 65 or older: Yes Sign of co-morbidity: Yes Exp to person + for COVID: Yes Exp to PUI: Yes (This a ) Travel from affected area: No Lower respiratory symptoms: Yes Fever: No PPE Use: Full PPE with N95 mask or PAPR: Yes Critical Care Time Critical Care: Authorized and Performed by: Josselyn Ware MD Total critical care time: approximately 60 minutes Due to a high probability of clinically significant, life threatening deterioration, the patient required my highest level of preparedness to intervene emergently and I personally spent this critical care time directly and personally managing the patient. This critical care time included obtaining a history; examining the patient; pulse oximetry; ventilator management if necessary; ordering and review of studies; arranging urgent treatment with development of a management plan; evaluation of patient's response to treatment; frequent reassessment; discussion with patient/family; and, discussions with other providers. This critical care time was performed to assess and manage the high probability of imminent, life-threatening deterioration that could result in multi-organ failure. It was exclusive of separately billable procedures and treating other patients and teaching time. Please see MDM section and the rest of the note for further information on patient assessment and treatment. PROCEDURE Procedure Intubation Performed by: Josselyn Ware MD Consent: Verbal consent not obtained. The procedure was performed in an emergent situation. Required items: required blood products, implants, devices, and special equipment available Patient identity confirmed: arm band Time out: Immediately prior to procedure a "time out" was called to verify the correct patient, procedure, equipment, network desktop support specialist and site/side marked as required. Indications: respiratory failure and airway protection Intubation method: direct Patient status: paralyzed (RSI) Preoxygenation: Bagging Laryngoscope size: Mac 4 Tube size: 7.5 mm Tube type: cuffed Number of attempts: 1 Cords visualized: yes Post-procedure assessment: chest rise, BS = bilaterally none over epigastrum, +CO2 detector Breath sounds: equal and absent over the epigastrium Cuff inflated: yes Tube secured with: adhesive tape Chest x-ray interpreted by me. Chest x-ray findings: endotracheal tube in appropriate position Patient tolerance: Patient tolerated the procedure well with no immediate complications. JOSSELYN WARE MD Nov 08, 2019 13:09
[2019-11-08 13:11] LABS: PROTHROMBIN TIME PATIENT 16.1 SEC (11.7-14.0); RBC,URINE OCC /HPF (0-2)
[2019-11-08 13:12] LABS: AMORPHOUS SEDIMENT,UR PRESENT /HPF; BACTERIA,URINE FEW /HPF (0-FEW)
[2019-11-08 13:22] LABS: BASO # 0.1 x10^3/uL (0.0-0.2); BASO % 1 % (0-3); EOS # 0.1 x10^3/uL (0.0-0.7); EOS % 1 % (0-3); HEMATOCRIT 31.7 % (39.0-53.0); HEMOGLOBIN 9.4 g/dL (13.0-17.5); LYMPH # 6.4 x10^3/uL (1.0-4.8); LYMPH % 46 % (24-48); MEAN CORPUSCULAR HEMOGLOBIN 29 pg (25-35); MEAN CORPUSCULAR HGB CONC 30 g/dL (31-37); MEAN CORPUSCULAR VOLUME 97 fL (79-100); MONO # 0.4 x10^3/uL (0.0-1.1); MONO % 3 % (0-9); NEUT # 7.1 x10^3/uL (1.8-7.7); NEUT % 50 % (31-73); PLATELET COUNT 251 x10^3/uL (140-400); RED BLOOD COUNT 3.26 x10^6/uL (4.30-5.70); RED CELL DISTRIBUTION WIDTH 17.1 % (11.5-14.5); WHITE BLOOD COUNT 14.1 x10^3/uL (4.0-11.0)
[2019-11-08 14:28] LABS: % ATYL 1 % (0-0); % BANDS 13 % (0-9); % EOS 1 % (0-5); % LYMPHS 45 % (24-48); % METAS 1 % (0-0); % MONOS 2 % (0-10); % SEGS 37 % (35-66)
[2019-11-08 14:29] LABS: PLT ESTIMATE ADEQUATE (ADEQUATE); POLYCHROMASIA SLIGHT
[2019-11-08 15:13] LABS: BASE EXCESS ABG -3 mmol/L (-3-3); HCO3 ABG 22 mmol/L (21-28); PCO2 ABG 36 mmHg (35-46); PO2 ABG 61 mmHg (65-108); SAT O2 ABG 90 % (92-99)
[2019-11-08 15:15] LABS: FIO2 ABG 50%
[2019-11-08] MEDS ORDERED: MORPHINE SULFATE 10 MG/ML VIAL. IV ONE ×2 (15:30→16:00)
--- NOTE | 2019-11-08 17:56 | PDOC1 ---
History and Physical Date of Admission Date of Admission DATE: 11/08/19 TIME: 17:56 Identification/Chief Complaint Chief Complaint Unresponsiveness Source Source: Caregiver, Chart review History of Present Illness History of Present Illness Mr Gunn is a 64 yo M senior living resident at [facility] w/ PMHx parkinsonism, RA, hypothyroidism, DM2, BP disorder with anxiety, Alzheimer's disease, previous CVA with hemiplegia, expressive aphasia, and dysphagia s/p PEG placement who was found today at his SNF with O2 levels in the 70s, unresponsive. He was recently admitted for pneumonia 11/01/2019-11/07/2019, discharged on antibiotics per PEG. At that time he had 2 negative tests for SARS-CoV-2. EMS was contacted and found patient with agonal breathing and PE rhythm, the initiated CPR and had return of spontaneous circulation and was transported to ED for further treatment. Upon assessment by triage nurse he had strong pulses but was not responsive. He is not verbal at baseline. On further assessment his temp was 95.6F, BP 76/50, HR 120, and he was hypoxic to 65% despite 15L non-rebreather mask. The ED physician performed rapid sequence intubation and O2 levels quickly improved as well as BP. Family was called bedside after a few hours and requested that he be removed from the ventilator and made comfortable, DNR/DNI. CXR showed bilateral infiltrates L>R. SARS-CoV-2 testing repeated due to quick decompensation after recent discharge. Patient seen bedside after extubation with family bedside. Daughter has requested to contact hospice for inpatient comfort care. Past Medical History Past Medical History parkinsonism, RA, hypothyroidism, DM2, BP disorder with anxiety, Alzheimer's disease, previous CVA with hemiplegia, expressive aphasia, and dysphagia s/p PEG placement Past Surgical History Past Surgical History: Other (PEG placement) Family History Family History: Family History Unknown Social History Smoke: No ALCOHOL: none Current Medications Current Medications Current Medications Midazolam HCl (Versed) 5 mg STK-MED ONCE .ROUTE ; Start 11/08/19 at 12:40; Stop 11/08/19 at 12:41; Status DC Midazolam HCl (Versed) 5 mg 1X ONCE IV Last administered on 11/08/19at 13:33; Start 11/08/19 at 13:00; Stop 11/08/19 at 13:01; Status DC Sodium Chloride 1,000 ml @ 1,000 mls/hr 1X ONCE IV Last administered on at 12:20; Start 11/08/19 at 12:20; Stop 11/08/19 at 14:45; Status DC Sodium Chloride 1,000 ml @ 1,000 mls/hr 1X ONCE IV Last administered on 11/08/19at 13:00; Start 11/08/19 at 13:00; Stop 11/08/19 at 14:45; Status DC Morphine Sulfate (Morphine Sulfate) 6 mg 1X ONCE IV Last administered on 11/08/19at 15:39; Start 11/08/19 at 15:30; Stop 11/08/19 at 15:31; Status DC Lorazepam (Ativan Inj) 2 mg 1X ONCE IVP Last administered on 11/08/19at 15:37; Start 11/08/19 at 15:30; Stop 11/08/19 at 15:31; Status DC Morphine Sulfate (Morphine Sulfate) 6 mg 1X ONCE IV Last administered on 11/08/19at 15:58; Start 11/08/19 at 16:00; Stop 11/08/19 at 16:01; Status DC Active Scripts Active Reported Tylenol (Acetaminophen) 325 Mg Tablet 2 Tab PEG PRN Q8HRS PRN Trazodone Hcl 50 Mg Tablet 1 Tab PEG QHS Zoloft (Sertraline Hcl) 50 Mg Tablet 1 Tab PEG DAILY Calcium 500 + Vit D 200 Tablet (Calcium Carbonate/Vitamin D3) 1 Each Tablet 1 Tab PEG BID 30 Days Nexium Capsule (Esomeprazole Magnesium) 40 Mg Capsule.dr 1 Cap PO DAILY Metformin Hcl 500 Mg Tablet 500 Mg PEG DAILY Gabapentin 600 Mg Tablet 100 Mg PEG HS Atorvastatin Calcium 40 Mg Tablet 40 Mg PEG HS Children's Aspirin (Aspirin) 81 Mg Tab.chew 81 Mg PEG DAILY Allergies Allergies: Coded Allergies: Penicillins (Verified Allergy, Intermediate, 11/01/19) Physical Exam General: severe distress, Other (Unresponsive) HEENT: Atraumatic, PERRLA, EOMI, Mucous membr. moist/pink Lungs: Other (Coarse rhonchi bilaterally) Heart: S1S2, RRR, no thrills, no rubs, no gallops, no murmurs Abdomen: Normal bowel sounds, Other (PEG site clean) Rectal Exam: not examined Extremities: Other (Contractures) Skin: Other (stage 2 gluteal ulcer) Neuro: Other (withdraws) Psych/Mental Status: Other (obtunded) Vitals Vitals Vital Signs Date Time Temp Pulse Resp B/P (MAP) Pulse Ox O2 Delivery O2 Flow Rate FiO2 11/08/19 16:12 120 30 92/59 (70) 34 Room Air 11/08/19 12:16 15.0 11/08/19 12:08 95.6 95.6 Labs Labs Laboratory Tests Test 11/08/19 12:30 11/08/19 14:31 White Blood Count 14.1 x10^3/uL (4.0-11.0) Red Blood Count 3.26 x10^6/uL (4.30-5.70) Hemoglobin 9.4 g/dL (13.0-17.5) Hematocrit 31.7 % (39.0-53.0) Mean Corpuscular Volume 97 fL (79-100) Mean Corpuscular Hemoglobin 29 pg (25-35) Mean Corpuscular Hemoglobin Concent 30 g/dL (31-37) Red Cell Distribution Width 17.1 % (11.5-14.5) Platelet Count 251 x10^3/uL (140-400) Neutrophils (%) (Auto) 50 % (31-73) Lymphocytes (%) (Auto) 46 % (24-48) Monocytes (%) (Auto) 3 % (0-9) Eosinophils (%) (Auto) 1 % (0-3) Basophils (%) (Auto) 1 % (0-3) Neutrophils # (Auto) 7.1 x10^3/uL (1.8-7.7) Lymphocytes # (Auto) 6.4 x10^3/uL (1.0-4.8) Monocytes # (Auto) 0.4 x10^3/uL (0.0-1.1) Eosinophils # (Auto) 0.1 x10^3/uL (0.0-0.7) Basophils # (Auto) 0.1 x10^3/uL (0.0-0.2) Segmented Neutrophils % 37 % (35-66) Band Neutrophils % 13 % (0-9) Lymphocytes % 45 % (24-48) Atypical Lymphocytes % (Manual) 1 % (0-0) Monocytes % 2 % (0-10) Eosinophils % 1 % (0-5) Metamyelocytes % 1 % (0-0) Platelet Estimate Adequate (ADEQUATE) Polychromasia Slight Prothrombin Time 16.1 SEC (11.7-14.0) Prothromb Time International Ratio 1.3 (0.8-1.1) Activated Partial Thromboplast Time 46 SEC (24-38) Urine Collection Type U cath Urine Color Yellow Urine Clarity Clear Urine pH 7.5 (<5.0-8.0) Urine Specific [place] 1.015 (1.000-1.030) Urine Protein 30 mg/dL (NEG-TRACE) Urine Glucose (UA) 250 mg/dL (NEG) Urine Ketones (Stick) Negative mg/dL (NEG) Urine Blood Negative (NEG) Urine Nitrite Negative (NEG) Urine Bilirubin Negative (NEG) Urine Urobilinogen Dipstick 1.0 mg/dL (0.2 mg/dL) Urine Leukocyte Esterase Negative (NEG) Urine RBC Occ /HPF (0-2) Urine WBC 1-4 /HPF (0-4) Urine Transitional Epithelial Cells Occ /LPF Urine Amorphous Sediment Present /HPF Urine Bacteria Few /HPF (0-FEW) O2 Saturation 99 % (92-99) 90 % (92-99) Arterial Blood pH 7.04 (7.35-7.45) 7.40 (7.35-7.45) Arterial Blood pCO2 at Patient Temp 58 mmHg (35-46) 36 mmHg (35-46) Arterial Blood pO2 at Patient Temp 276 mmHg (65-108) 61 mmHg (65-108) Arterial Blood HCO3 15 mmol/L (21-28) 22 mmol/L (21-28) Arterial Blood Base Excess -15 mmol/L (-3-3) -3 mmol/L (-3-3) FiO2 100% bagging 50% Sodium Level 141 mmol/L (136-145) Potassium Level 4.2 mmol/L (3.5-5.1) Chloride Level 102 mmol/L (98-107) Carbon Dioxide Level 21 mmol/L (21-32) Anion Gap 18 (6-14) Blood Urea Nitrogen 17 mg/dL (8-26) Creatinine 1.1 mg/dL (0.7-1.3) Estimated GFR (Cockcroft-Gault) 81.0 BUN/Creatinine Ratio 15 (6-20) Glucose Level 346 mg/dL (70-99) Lactic Acid Level 13.9 mmol/L (0.4-2.0) Calcium Level 8.2 mg/dL (8.5-10.1) Magnesium Level 2.7 mg/dL (1.8-2.4) Total Bilirubin 0.2 mg/dL (0.2-1.0) Aspartate Amino Transf (AST/SGOT) 91 U/L (15-37) Alanine Aminotransferase (ALT/SGPT) 90 U/L (16-63) Alkaline Phosphatase 151 U/L (46-116) Creatine Kinase 168 U/L (39-308) Creatine Kinase MB (Mass) 2.3 ng/mL (0.0-3.6) Creatine Kinase MB Relative Index 1.4 % (0-4) Troponin I Quantitative < 0.017 ng/mL (0.000-0.055) RC-Fqf-X-Type Natriuretic Peptide 881 pg/mL (0-124) Total Protein 7.2 g/dL (6.4-8.2) Albumin 1.4 g/dL (3.4-5.0) Albumin/Globulin Ratio 0.2 (1.0-1.7) Lipase 174 U/L (73-393) Laboratory Tests Test 11/08/19 12:30 11/08/19 14:31 White Blood Count 14.1 x10^3/uL (4.0-11.0) Red Blood Count 3.26 x10^6/uL (4.30-5.70) Hemoglobin 9.4 g/dL (13.0-17.5) Hematocrit 31.7 % (39.0-53.0) Mean Corpuscular Volume 97 fL (79-100) Mean Corpuscular Hemoglobin 29 pg (25-35) Mean Corpuscular Hemoglobin Concent 30 g/dL (31-37) Red Cell Distribution Width 17.1 % (11.5-14.5) Platelet Count 251 x10^3/uL (140-400) Neutrophils (%) (Auto) 50 % (31-73) Lymphocytes (%) (Auto) 46 % (24-48) Monocytes (%) (Auto) 3 % (0-9) Eosinophils (%) (Auto) 1 % (0-3) Basophils (%) (Auto) 1 % (0-3) Neutrophils # (Auto) 7.1 x10^3/uL (1.8-7.7) Lymphocytes # (Auto) 6.4 x10^3/uL (1.0-4.8) Monocytes # (Auto) 0.4 x10^3/uL (0.0-1.1) Eosinophils # (Auto) 0.1 x10^3/uL (0.0-0.7) Basophils # (Auto) 0.1 x10^3/uL (0.0-0.2) Segmented Neutrophils % 37 % (35-66) Band Neutrophils % 13 % (0-9) Lymphocytes % 45 % (24-48) Atypical Lymphocytes % (Manual) 1 % (0-0) Monocytes % 2 % (0-10) Eosinophils % 1 % (0-5) Metamyelocytes % 1 % (0-0) Platelet Estimate Adequate (ADEQUATE) Polychromasia Slight Prothrombin Time 16.1 SEC (11.7-14.0) Prothromb Time International Ratio 1.3 (0.8-1.1) Activated Partial Thromboplast Time 46 SEC (24-38) Urine Collection Type U cath Urine Color Yellow Urine Clarity Clear Urine pH 7.5 (<5.0-8.0) Urine Specific [place] 1.015 (1.000-1.030) Urine Protein 30 mg/dL (NEG-TRACE) Urine Glucose (UA) 250 mg/dL (NEG) Urine Ketones (Stick) Negative mg/dL (NEG) Urine Blood Negative (NEG) Urine Nitrite Negative (NEG) Urine Bilirubin Negative (NEG) Urine Urobilinogen Dipstick 1.0 mg/dL (0.2 mg/dL) Urine Leukocyte Esterase Negative (NEG) Urine RBC Occ /HPF (0-2) Urine WBC 1-4 /HPF (0-4) Urine Transitional Epithelial Cells Occ /LPF Urine Amorphous Sediment Present /HPF Urine Bacteria Few /HPF (0-FEW) O2 Saturation 99 % (92-99) 90 % (92-99) Arterial Blood pH 7.04 (7.35-7.45) 7.40 (7.35-7.45) Arterial Blood pCO2 at Patient Temp 58 mmHg (35-46) 36 mmHg (35-46) Arterial Blood pO2 at Patient Temp 276 mmHg (65-108) 61 mmHg (65-108) Arterial Blood HCO3 15 mmol/L (21-28) 22 mmol/L (21-28) Arterial Blood Base Excess -15 mmol/L (-3-3) -3 mmol/L (-3-3) FiO2 100% bagging 50% Sodium Level 141 mmol/L (136-145) Potassium Level 4.2 mmol/L (3.5-5.1) Chloride Level 102 mmol/L (98-107) Carbon Dioxide Level 21 mmol/L (21-32) Anion Gap 18 (6-14) Blood Urea Nitrogen 17 mg/dL (8-26) Creatinine 1.1 mg/dL (0.7-1.3) Estimated GFR (Cockcroft-Gault) 81.0 BUN/Creatinine Ratio 15 (6-20) Glucose Level 346 mg/dL (70-99) Lactic Acid Level 13.9 mmol/L (0.4-2.0) Calcium Level 8.2 mg/dL (8.5-10.1) Magnesium Level 2.7 mg/dL (1.8-2.4) Total Bilirubin 0.2 mg/dL (0.2-1.0) Aspartate Amino Transf (AST/SGOT) 91 U/L (15-37) Alanine Aminotransferase (ALT/SGPT) 90 U/L (16-63) Alkaline Phosphatase 151 U/L (46-116) Creatine Kinase 168 U/L (39-308) Creatine Kinase MB (Mass) 2.3 ng/mL (0.0-3.6) Creatine Kinase MB Relative Index 1.4 % (0-4) Troponin I Quantitative < 0.017 ng/mL (0.000-0.055) SI-Rzz-T-Type Natriuretic Peptide 881 pg/mL (0-124) Total Protein 7.2 g/dL (6.4-8.2) Albumin 1.4 g/dL (3.4-5.0) Albumin/Globulin Ratio 0.2 (1.0-1.7) Lipase 174 U/L (73-393) Images Images CXR: Interval intubation with endotracheal tube tip 9.5 cm above the nadege. Enteric tube with tip below the diaphragm beyond the image. Increased patchy left basilar opacities. Patchy right basilar opacities, unchanged. No pleural effusion. Linear density along the left lateral lung likely related to external artifact as lung markings are seen peripherally. No definite pneumothorax. Impression: 1. Interval intubation and placement of enteric tube. 2. Patchy bibasilar opacities, increased on the left. VTE Prophylaxis Ordered VTE Prophylaxis Devices: Yes VTE Pharmacological Prophylaxi: No Assessment/Plan Assessment/Plan A/P: Acute hypoxemic respiratory failure, multifactorial in nature - with worsening p neumonia, terminally extubated. Repeat SARS-CoV-2 testing performed given his worsening O2 status after d/c Septic shock - comfort care per family wishes [id number] suspected - repeat 3rd test Leukocytosis - related to pneumonia Hypothermia - warming protocol Severe protein calorie malnutrition - on PEG feeds previously Stage 2 pressure wound on coccyx, present upon admission. Elevated lactic acid - related to hypoxia, septic shock Neurogenic dysphagia, status post PEG tube placement History of cerebrovascular accident with hemiplegia - left parietal and right frontal lobe large CVAs Parkinsonism Alzheimer's DNR/DNI Dispo - critical, admit for comfort. Patient is actively dying, will contact hospice services per daughters wishes Justicifation of Admission Dx: Justifications for Admission: Justification of Admission Dx: Yes Sepsis: Hemodynamic Instability MICHELLE CASTELLANOS MD Nov 08, 2019 17:56
[2019-11-08] MEDS ORDERED: ONDANSETRON PF 4 MG/2 ML VIAL. IVP PRN (19:45)
[2019-11-08] MEDS ORDERED: ACETAMINOPHEN 650 MG SUPP.RECT. PR PRN (19:45)
[2019-11-08] MEDS ORDERED: BISACODYL 10 MG SUPP.RECT. PR PRN (19:45)
[2019-11-08] MEDS ORDERED: PROMETHAZINE 25 MG SUPP.RECT. PR PRN (19:45)
[2019-11-08] MEDS: MORPHINE SULFATE 4 MG/ML VIAL. IV PRN (20:11)
[2019-11-09] MEDS: MORPHINE SULFATE 4 MG/ML VIAL. IV PRN (02:56)
[2019-11-09 07:00] VITALS: BP 122/81
--- NOTE | 2019-11-09 11:03 | PDOC ---
[employer] PROGRESS NOTE Chief Complaint Chief Complaint Acute hypoxemic respiratory failure, multifactorial Septic shock [id number] suspected - repeat 3rd test Leukocytosis - related to pneumonia Hypothermia Severe protein calorie malnutrition Stage 2 pressure wound on coccyx, present upon admission. Elevated lactic acid - related to hypoxia, septic shock Neurogenic dysphagia, status post PEG tube placement History of cerebrovascular accident with hemiplegia - left parietal and right frontal lobe large CVAs Parkinsonism Alzheimer's History of Present Illness History of Present Illness 11/09/2019 Patient seen and examined He is resting with no apparent distress has the care channel on TV Staring off into space Discussed with RN Discussed with case management Repeat COVID testing is pending Vitals/I&O Vitals/I&O: Vital Signs Date Time Temp Pulse Resp B/P (MAP) Pulse Ox O2 Delivery O2 Flow Rate FiO2 11/09/19 07:00 98.2 113 19 122/81 (95) 95 Nasal Cannula 2.0 98.2 I & O 11/08/19 11/08/19 11/09/19 15:00 23:00 07:00 Intake Total 1000 ml 1000 ml 0 ml Output Total 350 ml Balance 1000 ml 650 ml 0 ml Physical Exam General: No acute distress, Other (Unresponsive) Heart: Regular rate, Normal S1 Lungs: Crackles Abdomen: Normal bowel sounds, Other (PEG site clean) Extremities: No clubbing, Other (Contractures) Skin: No rashes, Other (stage 2 gluteal ulcer) Labs Labs: Laboratory Tests Test 11/08/19 12:30 11/08/19 14:31 White Blood Count 14.1 x10^3/uL (4.0-11.0) Red Blood Count 3.26 x10^6/uL (4.30-5.70) Hemoglobin 9.4 g/dL (13.0-17.5) Hematocrit 31.7 % (39.0-53.0) Mean Corpuscular Volume 97 fL (79-100) Mean Corpuscular Hemoglobin 29 pg (25-35) Mean Corpuscular Hemoglobin Concent 30 g/dL (31-37) Red Cell Distribution Width 17.1 % (11.5-14.5) Platelet Count 251 x10^3/uL (140-400) Neutrophils (%) (Auto) 50 % (31-73) Lymphocytes (%) (Auto) 46 % (24-48) Monocytes (%) (Auto) 3 % (0-9) Eosinophils (%) (Auto) 1 % (0-3) Basophils (%) (Auto) 1 % (0-3) Neutrophils # (Auto) 7.1 x10^3/uL (1.8-7.7) Lymphocytes # (Auto) 6.4 x10^3/uL (1.0-4.8) Monocytes # (Auto) 0.4 x10^3/uL (0.0-1.1) Eosinophils # (Auto) 0.1 x10^3/uL (0.0-0.7) Basophils # (Auto) 0.1 x10^3/uL (0.0-0.2) Segmented Neutrophils % 37 % (35-66) Band Neutrophils % 13 % (0-9) Lymphocytes % 45 % (24-48) Atypical Lymphocytes % (Manual) 1 % (0-0) Monocytes % 2 % (0-10) Eosinophils % 1 % (0-5) Metamyelocytes % 1 % (0-0) Platelet Estimate Adequate (ADEQUATE) Polychromasia Slight Prothrombin Time 16.1 SEC (11.7-14.0) Prothromb Time International Ratio 1.3 (0.8-1.1) Activated Partial Thromboplast Time 46 SEC (24-38) Urine Collection Type U cath Urine Color Yellow Urine Clarity Clear Urine pH 7.5 (<5.0-8.0) Urine Specific [place] 1.015 (1.000-1.030) Urine Protein 30 mg/dL (NEG-TRACE) Urine Glucose (UA) 250 mg/dL (NEG) Urine Ketones (Stick) Negative mg/dL (NEG) Urine Blood Negative (NEG) Urine Nitrite Negative (NEG) Urine Bilirubin Negative (NEG) Urine Urobilinogen Dipstick 1.0 mg/dL (0.2 mg/dL) Urine Leukocyte Esterase Negative (NEG) Urine RBC Occ /HPF (0-2) Urine WBC 1-4 /HPF (0-4) Urine Transitional Epithelial Cells Occ /LPF Urine Amorphous Sediment Present /HPF Urine Bacteria Few /HPF (0-FEW) O2 Saturation 99 % (92-99) 90 % (92-99) Arterial Blood pH 7.04 (7.35-7.45) 7.40 (7.35-7.45) Arterial Blood pCO2 at Patient Temp 58 mmHg (35-46) 36 mmHg (35-46) Arterial Blood pO2 at Patient Temp 276 mmHg (65-108) 61 mmHg (65-108) Arterial Blood HCO3 15 mmol/L (21-28) 22 mmol/L (21-28) Arterial Blood Base Excess -15 mmol/L (-3-3) -3 mmol/L (-3-3) FiO2 100% bagging 50% Sodium Level 141 mmol/L (136-145) Potassium Level 4.2 mmol/L (3.5-5.1) Chloride Level 102 mmol/L (98-107) Carbon Dioxide Level 21 mmol/L (21-32) Anion Gap 18 (6-14) Blood Urea Nitrogen 17 mg/dL (8-26) Creatinine 1.1 mg/dL (0.7-1.3) Estimated GFR (Cockcroft-Gault) 81.0 BUN/Creatinine Ratio 15 (6-20) Glucose Level 346 mg/dL (70-99) Lactic Acid Level 13.9 mmol/L (0.4-2.0) Calcium Level 8.2 mg/dL (8.5-10.1) Magnesium Level 2.7 mg/dL (1.8-2.4) Total Bilirubin 0.2 mg/dL (0.2-1.0) Aspartate Amino Transf (AST/SGOT) 91 U/L (15-37) Alanine Aminotransferase (ALT/SGPT) 90 U/L (16-63) Alkaline Phosphatase 151 U/L (46-116) Creatine Kinase 168 U/L (39-308) Creatine Kinase MB (Mass) 2.3 ng/mL (0.0-3.6) Creatine Kinase MB Relative Index 1.4 % (0-4) Troponin I Quantitative < 0.017 ng/mL (0.000-0.055) XE-Ltm-F-Type Natriuretic Peptide 881 pg/mL (0-124) Total Protein 7.2 g/dL (6.4-8.2) Albumin 1.4 g/dL (3.4-5.0) Albumin/Globulin Ratio 0.2 (1.0-1.7) Lipase 174 U/L (73-393) Assessment and Plan Assessmemt and Plan Problems Medical Problems: (1) Pneumonia Status: Acute (2) Respiratory arrest Status: Acute (3) Sepsis Status: Acute Acute hypoxemic respiratory failure, multifactorial in nature - with worsening pneumonia, terminally extubated. Repeat SARS-CoV-2 testing performed given his worsening O2 status after d/c Septic shock - comfort care per family wishes [id number] suspected - repeat 3rd test Leukocytosis - related to pneumonia Hypothermia - warming protocol Severe protein calorie malnutrition - on PEG feeds previously Stage 2 pressure wound on coccyx, present upon admission. Elevated lactic acid - related to hypoxia, septic shock Neurogenic dysphagia, status post PEG tube placement History of cerebrovascular accident with hemiplegia - left parietal and right frontal lobe large CVAs Parkinsonism Alzheimer's Prognosis long-term appears possibly terminal? Comment Review of Relevant I have reviewed the following items cele (where applicable) has been applied. Medications: Current Medications Medications (Trade) Dose Ordered Sig/Radha Route PRN Reason Start Time Stop Time Status Last Admin Dose Admin Midazolam HCl (Versed) 5 mg 1X ONCE IV 11/08/19 13:00 11/08/19 13:01 DC 11/08/19 13:33 Sodium Chloride 1,000 ml @ 1,000 mls/hr 1X ONCE IV 11/08/19 12:20 11/08/19 14:45 DC 11/08/19 12:20 Sodium Chloride 1,000 ml @ 1,000 mls/hr 1X ONCE IV 11/08/19 13:00 11/08/19 14:45 DC 11/08/19 13:00 Morphine Sulfate (Morphine Sulfate) 6 mg 1X ONCE IV 11/08/19 15:30 11/08/19 15:31 DC 11/08/19 15:39 Lorazepam (Ativan Inj) 2 mg 1X ONCE IVP 11/08/19 15:30 11/08/19 15:31 DC 11/08/19 15:37 Morphine Sulfate (Morphine Sulfate) 6 mg 1X ONCE IV 11/08/19 16:00 11/08/19 16:01 DC 11/08/19 15:58 Morphine Sulfate (Morphine Sulfate) 4 mg PRN Q2HR PRN IV PAIN 11/08/19 19:45 11/09/19 02:56 Lorazepam (Ativan Inj) 1 mg PRN Q4HRS PRN IVP ANXIETY / AGITATION 11/08/19 19:45 11/09/19 02:55 Justicifation of Admission Dx: Justifications for Admission: Justification of Admission Dx: Yes Sepsis: Hemodynamic Instability KONSTANTIN MOSS III DO Nov 09, 2019 11:03
[2019-11-09 11:51] VITALS: BP 131/80
[2019-11-09] MEDS: LORazepam INTENSOL 2 MG/ML ORAL.CONC SL PRN ×2 (12:58→22:19)
[2019-11-09 15:11] VITALS: BP 153/86
--- NOTE | 2019-11-09 17:02 | NUR ---
SW following. Spoke with RN and reviewed chart. Pt from home. Pt on 4l 02. PT/OT to evaluate. COVID pending. Pt on oral mediations. SW to continue following.
--- NOTE | 2019-11-09 18:10 | NUR ---
Wound Care Wound care consult for stage II coccyx wound. No photo in chart for assessment, Pt is COVID 19 pending. Discussed POC with Darya SARAH who will photograph wound next time she turns patient. Recommend to continue xeroform and foam dressing unless pt begins to have frequent bowel movments, then switch to calazime. Wound care instructions left on orange sheet on front of chart.
[2019-11-09 19:00] VITALS: BP 153/85
[2019-11-09] MEDS: MORPHINE SULFATE 20 MG/ML CONC SOLUTION. SL PRN (22:18)
[2019-11-10 07:00] VITALS: BP 150/90
--- NOTE | 2019-11-10 17:00 | NUR ---
Patient transferred to room 418 at 1650. Esha RN assuming care of patient now. Daughter informed of transfer.
[2019-11-10] MEDS: LORazepam INTENSOL 2 MG/ML ORAL.CONC SL PRN (17:01)
[2019-11-10] MEDS: MORPHINE SULFATE 20 MG/ML CONC SOLUTION. SL PRN (17:01)
[2019-11-10] MEDS: MORPHINE SULFATE 4 MG/ML VIAL. IV PRN ×2 (18:34→21:38)
[2019-11-10 19:00] VITALS: BP 118/70
--- NOTE | 2019-11-10 20:56 | PDOC ---
GENERAL General: Patient examined chart reviewed patient with extensive multi-morbidity readmitt ed with acute hypoxic and hypercarbic respiratory failure suspected COVID-19 tested negative several times. He is now on hospice care. He is very comfortable this evening nonresponsive. Problems: (1) Respiratory arrest (2) Pneumonia VITAL SIGNS Vital Signs/I&O: Vital Signs Date Time Temp Pulse Resp B/P (MAP) Pulse Ox O2 Delivery O2 Flow Rate FiO2 11/10/19 08:00 Nasal Cannula 2.0 11/10/19 07:00 99.5 24 150/90 (110) 80 99.5 11/09/19 19:00 77 I & O 11/09/19 11/09/19 11/10/19 15:00 23:00 07:00 Intake Total 0 ml 0 ml 0 ml Output Total 1500 ml Balance 0 ml 0 ml -1500 ml Patient is sleeping unresponsive respiration is shallow steady. The patient appears comfortable ALLERGIES Allergies: Allergies Coded Allergies Type Severity Reaction Last Updated Verified Penicillins Allergy Intermediate 11/01/19 Yes MEDS Medications: Current Medications Medications (Trade) Dose Ordered Sig/Radha Start Time Stop Time Status Last Admin Dose Admin Acetaminophen (Tylenol Supp) 650 mg PRN Q4HRS PRN 11/08/19 19:45 11/09/19 21:04 Bisacodyl (Dulcolax Supp) 10 mg PRN DAILY PRN 11/08/19 19:45 Epinephrine HCl (EPINEPHrine SYRINGE) 1 mg STK-MED ONCE 11/08/19 12:00 11/09/19 16:22 DC Lorazepam (Ativan Inj) 1 mg PRN Q4HRS PRN 11/08/19 19:45 11/09/19 02:55 Lorazepam (Ativan Intensol) 1 mg PRN Q6HRS PRN 11/08/19 19:45 11/10/19 17:01 Midazolam HCl (Versed) 5 mg 1X ONCE 11/08/19 13:00 11/08/19 13:01 DC 11/08/19 13:33 Morphine Sulfate (Morphine Sulfate) 4 mg PRN Q2HR PRN 11/08/19 19:45 11/10/19 18:34 Morphine Sulfate (Roxanol Conc) 5 mg PRN Q2HRS PRN 11/08/19 19:45 11/10/19 17:01 Ondansetron HCl (Zofran) 4 mg PRN Q6HRS PRN 11/08/19 19:45 Promethazine HCl (Phenergan Supp) 25 mg PRN Q4HRS PRN 11/08/19 19:45 Sodium Chloride 1,000 ml @ 1,000 mls/hr 1X ONCE 11/08/19 13:00 11/08/19 14:45 DC 11/08/19 13:00 ASSESSMENT & PLAN A&P Plan as noted above This note was created using [employer] and may have omissions and/or errors due to the nature of real-time voice insurance analyst. Justicifation of Admission Dx: Justifications for Admission: Justification of Admission Dx: Yes Sepsis: Hemodynamic Instability APRIL OCHOA MD Nov 10, 2019 20:56
[2019-11-11] MEDS: MORPHINE SULFATE 4 MG/ML VIAL. IV PRN ×2 (06:47→09:50)
[2019-11-11 07:00] VITALS: BP 102/65
--- NOTE | 2019-11-11 15:15 | NUR ---
Discharge Note: JACQUELYN WARE DYER Discharge instructions and discharge home medications reviewed with [g CHONG.DC9] and a copy given. All questions have been answered and understanding verbalized. The following instructions and handouts were given: [] Discontinued lines and drains: [g CHONG.DRNTYP][g IV.MARIANNA] intact. Patient discharged to [g CHONG.DC3] with[g CHONG.DC5]via [g CHONG.DC4] Addendum: 11/11/19 at 1518 by LIBERTAD MARIE RN Patient passed at 1128. Verified by writer and Heather RN. Family notified, MD Tk notifeid. Nursing library supervisor notified. Body taken down to security at 1500 after family was finished visiting.
--- NOTE | 2019-11-11 15:28 | PDOC ---
GENERAL General: Discharge summary [id number] VITAL SIGNS Vital Signs/I&O: Vital Signs Date Time Temp Pulse Resp B/P (MAP) Pulse Ox O2 Delivery O2 Flow Rate FiO2 11/11/19 08:00 Nasal Cannula 2.0 11/11/19 07:00 97.3 125 16 102/65 (42) 77 97.3 I & O 11/10/19 11/10/19 11/11/19 15:00 23:00 07:00 Intake Total 0 ml Balance 0 ml ALLERGIES Allergies: Allergies Coded Allergies Type Severity Reaction Last Updated Verified Penicillins Allergy Intermediate 11/01/19 Yes Justicifation of Admission Dx: Justifications for Admission: Justification of Admission Dx: Yes Sepsis: Hemodynamic Instability APRIL OCHOA MD Nov 11, 2019 15:28
--- NOTE | 2019-11-11 15:36 | DS ---
DATE OF DISCHARGE: 11/11/2019 HOSPITAL COURSE: This patient was a 64-year-old man who was readmitted 3 days ago from [facility] with acute on chronic hypoxic respiratory failure in the setting of extensive underlying multiple morbidity. The patient had had several admissions and multiple COVID-19 tests given exposure at the [facility] facility. He had a code blue in the Emergency Department on this admission and while he was resuscitated, he never regained responsiveness. The family elected to proceed with comfort care measures and the patient passed peacefully this afternoon on hospice care up on the 4th floor. I did not see him today before his , but last evening, he was unresponsive and appeared comfortable on evaluation. FINAL DIAGNOSES: 1. Acute on chronic hypoxic respiratory failure secondary to suspected COVID-19. 2. Chronic multimorbidity, otherwise as outlined in the history and physical. APRIL OCHOA MD DR: RADHA/maribell JOB#: [id number] / [id number]
== END 2019-11-11 11:28 | disposition expired | DRG 871 ==
LOC: ER 12:07 → ED HOLD 17:46 → 4 NORTH 19:04 → 6 SOUTH 22:00 → 4 NORTH 11-10 17:02
PROVIDERS: ADMIT Internal Medicine; ATTEND Internal Medicine
PROC: 5A1935Z Respiratory Ventilation, Less than 24 Consecutive Hours (ICD-10-PCS; principal; 2019-11-08)
PROC: 0BH18EZ Insertion of Endotracheal Airway into Trachea, Via Natural or Artificial Opening Endoscopic (ICD-10-PCS; 2019-11-08)
DX: A41.9 Sepsis, unspecified organism (principal); J18.9 Pneumonia, unspecified organism; R65.21 Severe sepsis with septic shock; E43 Unspecified severe protein-calorie malnutrition; J96.22 Acute and chronic respiratory failure with hypercapnia; J96.21 Acute and chronic respiratory failure with hypoxia; I69.359 Hemiplegia and hemiparesis following cerebral infarction affecting unspecified side; Z68.1 Body mass index [BMI] 19.9 or less, adult; M06.9 Rheumatoid arthritis, unspecified; G20 Parkinson's disease; G30.9 Alzheimer's disease, unspecified; F02.80 Dementia in other diseases classified elsewhere, unspecified severity, without behavioral disturbance, psychotic disturbance, mood disturbance, and anxiety; Z20.828 Contact with and (suspected) exposure to other viral communicable diseases; F31.9 Bipolar disorder, unspecified; E03.9 Hypothyroidism, unspecified; Z51.5 Encounter for palliative care; F41.9 Anxiety disorder, unspecified; E11.9 Type 2 diabetes mellitus without complications; Z66 Do not resuscitate; L89.152 Pressure ulcer of sacral region, stage 2; R13.19 Other dysphagia; Z88.0 Allergy status to penicillin; Z79.899 Other long term (current) drug therapy; Z87.01 Personal history of pneumonia (recurrent)
CPT/HCPCS: 36415; 36600; 51702; 71045; 80053; 81001; 82553; 82805; 83605; 83690; 83735; 83880; 84484; 85007; 85025; 85610; 85730; 87040; 93005; 94002; 96361; 96374; 96375; 99291; J0171; J2060; J2250; J2270; J7030; G0378; U0003-CS